=== PATIENT | female | born 1980 | race Hispanic/Latino ===

== ENCOUNTER 2016-09-06 14:54 | Emergency (ER) | payer OTHER ==
[~2016-09-06] VITALS: Ht 157.5 cm; Wt 73.5 kg
[~2016-09-06 14:54] MED LIST: ADVAIR DISKUS 21 DSK INH; ADVAIR DISKUS1 UNIT INH; ALBUTEROL0.09 MG/A1 INH; ALBUTEROL0.09 MG/Ac INH; ALBUTEROL0.63 MG/3 INH/SOL; ALPRAZOLAM0.5 M3 PO; ALPRAZOLAM1 MG PO; AMITRIPTYLINE H25 M1 PO; ASPIR 8181 MG PO; ATIVAN0.5 M1 PO; AUGMENTIN 875875 MG PO; AZITHROMYCIN250 MG PO; BROMFED DM COU473 ML PO; Benadryl PO; COMPAZINE10 M1 PO; COUMADIN 2.5 M2.5 MG PO; COUMADIN 5 MG TA5 MG PO; CYCLOBENZAPRINE5 M2 PO; DILAUDID2 M1 PO; DILAUDID2 MG PO; DIPHENHYDRAMINE25 M1 PO; DIVALPROEX SOD500 M2 PO; DOXYCYCLINE HY100 MG PO; DOXYCYCLINE MO100 MG PO; DULCOLAX5 MG PO; EFFEXOR XR150 MG PO; ELAVIL25 MG PO; ELIQUIS2.5 M1 PO; ELIQUIS5 M1 PO; ELIQUIS5 MG PO; FERROUS SULFAT325 M1 PO; FERROUS SULFAT325 M2 PO; FIORICET 325 MG1 TAB PO; FIORICET 50-301 EACH PO; FLEXERIL10 MG PO; FLU VACCINE 0.0.5 ML IM; HYDROMORPHONE HC2 MG PO; HYDROXYZINE HCL25 MG PO; IBUPROFEN800 M1 PO; IMITREX20 MG PO; IMITREX50 M1 PO; IMODIUM A-D2 M1 PO; K-DUR 20MEQ TA20 MEQ PO; KETOROLAC TROME10 M1 PO; LASIX20 MG PO; LEVOTHROID0.075 MG PO; LEVOTHROID0.125 MG PO; LEVOTHYROXIN0.025 M1 PO; LEVOTHYROXINE125 MCG PO; LIORESAL 10MG T10 MG PO; LOVENOX 10100 MG/1 M SC; LYRICA75 MG PO; MASON NATURAL2000 IU PO; MAXALT10 MG PO; MEDROL4 M2 PO; MOBIC15 MG PO; OXYCONTIN10 MG PO; PEPCID20 M1 PO; PEPCID20 MG PO; PERCOCET 325 MG1 TA2 PO; PERCOCET 325 MG1 TAB PO; PERCOCET 5-3251 EACH PO; PHENERGAN25 M2 PO; PREDNISONE 20MG20 MG PO; PREDNISONE10 MG PO; PROCHLORPERAZIN10 M1 PO; PROMETHAZINE HC25 M3 PO; ROBITUSSIN W/CO10 ML PO; SERTRALINE HYD100 MG PO; SUMATRIPTAN SU100 MG PO; TOPAMAX200 M1 PO; TOPAMAX50 M1 PO; TOPIRAMATE25 MG PO; TRAZODONE HCL150 MG PO; TYLENOL COLD M240 M1 PO; UNITHROID PO; VALIUM5 M1 PO; VENLAFAXINE HYD25 MG; VENLAFAXINE HYD75 M1 PO; VICODIN 300 MG-1 TAB PO; VITAMIN B-12250 MCG PO; WARFARIN SODIU2.5 MG PO; XANAX1 MG PO; ZITHROMAX Z-PA250 M1 PO; ZOFRAN 4 MG TABL4 MG PO; ZOFRAN 4MG ORALL4 MG PO; ZOFRAN ODT4 MG PO; ZOFRAN ODT4 MG SL; ZOFRAN4 M1 PO; ZOFRAN4 M1 SL; ZOLOFT 100 MG100 MG PO; ZOLOFT100 M1 PO
--- NOTE | 2016-09-06 18:00 | ED HEADACHE COMPLAINT ---
History of Present Illness General Chief Complaint: General Adult Stated Complaint: ?MIGRAINE Source: patient Exam Limitations: no limitations Vital Signs & Intake/Output Vital Signs & Intake/Output Vital Signs Date Time Temp Pulse Resp B/P Pulse O2 O2 Flow FiO2 Ox Delivery Rate 09/06 2011 97.6 84 18 116/80 99 Room Air Room Air 09/06 1619 97.4 87 16 117/84 99 Room Air ED Intake and Output 09/07 0000 09/06 1200 Intake Total 1100 Output Total Balance 1100 Intake, IV 1100 Patient 162 lb Weight Allergies Coded Allergies: morphine (Intermediate, ITCHING, HIVES 06/17/16) Reconcile Medications Albuterol Sulfate (Albuterol Sulfate Nebulizer Soln) 0.63 MG/3 ML VIAL.NEB 1 Vial INH/LUIZA 4 TIMES/DAY PRN ASTHMA (Reported) Albuterol Sulfate (Albuterol Sulfate Hfa) 90 MCG HFA.AER.AD 2 PUFF INH Q4-6 PRN PRN SHORTNESS OF BREATH 90 MCG PER PUFF Apixaban (Eliquis) 2.5 MG TABLET 2.5 MG PO BID BLOOD THINNER Cyanocobalamin (Vitamin B-12) (Vitamin B-12) 250 MCG TABLET 1 TAB PO DAILY B12 DEFICIENCY Famotidine 20 MG TABLET 1 TAB PO DAILY GERD (Reported) Ferrous Sulfate 325 MG TABLET.DR 1 TAB PO DAILY IRON DEF ANEMIA Ketorolac Tromethamine 10 MG TABLET 1 TAB PO TID INFLAMMATION Ketorolac Tromethamine 10 MG TABLET 1 TAB PO TID PRN MIGRAINE Levothyroxine Sodium 125 MCG TABLET 1 TAB PO DAILY THYROID (Reported) Loperamide HCl (Imodium A-D) 2 MG TABLET 0 PO SEE ADMIN CRITERIA PRN diarrhea 1 tab after each loose stool up to 7 per day Methylprednisolone. (Medrol) 4 MG TAB.DS.PK 1 DP PO AD INFLAMMATION 6 on day 1 then reduce by one tablet daily until gone Promethazine HCl 25 MG TABLET 1 TAB PO Q6P PRN NAUSEA Sertraline HCl (Zoloft) 100 MG TABLET 150 MG PO DAILY DEPRESSION Topiramate (Topamax) 50 MG TABLET 1 TAB PO BID MIGRAINE PROPHYLAXIS Please make an appointment with your Neurologist by the end of this week 03/26/16 so that your medication can be uptitrated as per their recommendations. Trazodone Hydrochloride (Trazodone HCl) 150 MG TAB 150 MG PO AT BEDTIME SLEEP (Reported) Triage Note: PT STATES SHE HAS A MIGRAINE SINCE TUESDAY NIGHT BUT STATES IT ISN'T GOING AWAY. PT STATES SHE HAS BEEN TAKING HER MEDS DIRECTED. PT STATES HER TOM GOES AWAY FOR AN HOUR BUT RETURNS. Triage Nurses Notes Reviewed? yes Onset: Gradual Duration: getting worse Timing: recent history Severity Numbers: 8 Head Injury Location: frontal : No Patient currently breastfeeds: No HPI: Patient is a 36-year-old female with past medical history of chronic migraines who presents emergency and that she had a gradual onset on Tuesday 3 days ago of a left-sided frontal migraine headache with associated symptoms of photophobia and nausea without emesis blurred vision sensitivity to loud noises which patient has been taking her Topamax and Maxalt and Advil with intermittent relief of symptoms. Today symptoms have been unrelieved with medications. Denies any acute onset or thunderclap headache symptoms and denies worse headache of life. Denies any chest pain or arm pain jaw pain abdominal pain. (FRANK CERON) Past History Travel History Traveled to [place] past 21 day No Medical History Any Pertinent Medical History? see below for history Neurological: migraine, peripheral neuropathy, seizure EENT: NONE Cardiovascular: EDEMA FROM [place] Respiratory: asthma, bronchitis, pulmonary embolism, pneumonia Gastrointestinal: NONE Hepatic: NONE Renal: NONE Musculoskeletal: fibromyalgia Psychiatric: anxiety, depression Endocrine: hypothyroidism Blood Disorders: DVT X 3 MYESHA 03/05 Cancer(s): NONE BRICK WHEELER/Reproductive: NONE History of MRSA: Yes History of VRE: No History of CDIFF: No Surgical History Surgical History: cholecystectomy, tubal ligation Psychosocial History Who do you live with Significant Other Services at Home None What is your primary language Taiwanese Tobacco Use: Never used ETOH Use: denies use Illicit Drug Use: denies illicit drug use Family History Family History, If Any: MOTHER FH: diabetes mellitus FH: hyperlipidemia FH: migraine headache FH: neuropathy FATHER FH: diabetes mellitus FH: heart attack FH: obesity Hx Contributory? No (FRANK CERON) Review of Systems Review of Systems Constitutional: Reports: see HPI. Eyes: Reports: see HPI, photophobia. Ears, Nose, Throat, Mouth: Reports: no symptoms. Respiratory: Reports: no symptoms. Cardiovascular: Reports: no symptoms. Gastrointestinal/Abdominal: Reports: no symptoms. Genitourinary: Reports: no symptoms. Musculoskeletal: Reports: no symptoms. Skin: Reports: no symptoms. Neurological/Psychological: Reports: see HPI, headache. Hematologic/Endocrine: Reports: no symptoms. Endocrine: Reports: no symptoms. Immunologic/Allergic: Reports: no symptoms. All Other Systems: Reviewed and Negative (FRANK CERON) Physical Exam Physical Exam General Appearance: mild distress Cranial Nerves: normal hearing, normal speech, PERRL Comments: HEENT: Normal EENT exam, extraocular motion intact, no nystagmus. Pupils equally round and reactive to light and accommodation. Nose is atraumatic. External auditory canal and Tympanic membranes clear. Pharynx normal. No swelling or edema. Neck: Supple, no lymphadenopathy, normal range of motion without pain or tenderness Back: Nontender, no CVA tenderness. Cardiovascular: Regular rate and rhythms no murmurs rubs or gallops, normal JVP Respiratory: Chest nontender. No respiratory distress.breath sounds clear to auscultation bilaterally Abdomen: Soft, nontender nondistended, no appreciable organomegaly. Normal bowel sounds. No ascites Extremity: No edema, no calf tenderness to palpation, normal and equal pulses. Neuro: Alert oriented x3, motor sensory normal, cranial nerves II through XII grossly intact. Skin: No appreciable rash on exposed skin, skin is warm and dry. Psych: Mood and affect is normal, memory and judgment is normal. Core Measures Severe Sepsis Present: No Septic Shock Present: No (FRANK CERON) Progress Differential Diagnosis: carotid dissection, cav sinus thromb, cluster TOM, encephalitis, IC mass/tumor, intracranial Hem., meningitis, migraine TOM, musculoskeletal pain, post LP headache, sinusitis, SSS thrombosis, subarach. Hem., tension TOM, temporal arteritis, TMJ syndrome, viral cephalgia Plan of Care: Current Medications Sig/Ranjeet Start time Last Medication Dose Stop Time Status Admin Sodium Chloride 1,000 ML BOLUS ONE 09/06 1800 AC (Normal Saline 0.9%) 09/06 1859 And currently has no concerns at this time due to history of present illness and exam findings of SAH,ich or giant cell arteritis Patient after medications administered in the emergency room had significant complete resolution of nausea and headaches. Upon discharge patient looks well no apparent distress and patient was strongly advised to follow-up with established neurologist Dr. Rivera and she will comply. (FRANK CERON) Departure Departure Disposition: HOME OR SELF CARE Condition: Stable Clinical Impression Primary Impression: Migraine Referrals: LINNETTE MOE,KEON (PCP/Family) Additional Instructions: As discussed begin the prescription of ketorolac for her headaches as directed. Begin the prescription of promethazine for nausea. Continue home medications as directed. Follow up this week with your established neurologist Dr. Rivera. Prescriptions are waiting at [facility] pharmacy. Departure Forms: Customer Survey General Discharge Information Prescriptions: Current Visit Scripts Ketorolac Tromethamine 1 TAB PO TID PRN MIGRAINE #15 TAB Promethazine HCl 1 TAB PO Q6P PRN NAUSEA #15 TAB (FRANK CERON) PA/BOILER INSPECTOR Co-Sign Statement Statement: ED Attending supervision documentation- [] I saw and evaluated the patient. I have also reviewed all the pertinent lab results and diagnostic results. I agree with the findings and the plan of care as documented in the PA's/BOILER INSPECTOR's documentation. [X] I have reviewed the ED Record and agree with the PA's/BOILER INSPECTOR's documentation. [] Additions or exceptions (if any) to the PAs/BOILER INSPECTOR's note and plan are summarized below: [] (BART MOE,KEON)
[2016-09-06] MEDS ORDERED: KETOROLAC TROME10 M1 PO (20:01)
[2016-09-06] MEDS ORDERED: PROMETHAZINE HC25 M3 PO (20:01)
[2016-09-06 20:12] VITALS: BP 116/80
== END 2016-09-06 20:13 ==
LOC: ERH 14:54
DX: G43.909 Migraine, unspecified, not intractable, without status migrainosus (principal)
CPT/HCPCS: 96374; 96375; J1200; J1885; J2550; J2920

== ENCOUNTER 2016-09-21 08:00 | Emergency (ER) | payer OTHER ==
[~2016-09-21] VITALS: Ht 157.5 cm; Wt 79.4 kg
--- NOTE | 2016-09-21 09:24 | RADIOLOGY REPORT ---
EXAMINATION: XR CHEST CLINICAL INFORMATION: Chest pain and shortness of breath. COMPARISON: Chest x-ray 05/24/2016. TECHNIQUE: PA and lateral views of the chest were obtained. FINDINGS: The lung al are well expanded and appear clear bilaterally. The cardiac silhouette is normal. There are no pleural effusions or pneumothorax. The central pulmonary vasculature is normal. The hilar regions appear normal. There are no acute osseous findings. There are surgical clips in the right upper quadrant consistent with sequelae of cholecystectomy. IMPRESSION: 1. There are no acute cardiopulmonary findings.
[2016-09-21 09:41] LABS: ABSOLUTE BASOPHIL COUNT 0 /CUMM (0.0-0.2); ABSOLUTE EOSINOPHIL COUNT 0.2 /CUMM (0.0-0.7); ABSOLUTE GRANULOCYTE CT 3.9 /CUMM (1.4-6.5); ABSOLUTE LYMPH COUNT 1.6 /CUMM (1.2-3.4); ABSOLUTE MONOCYTE COUNT 0.2 /CUMM (0.10-0.60); BASOPHIL % 0.4 % (0.0-2.0); EOSINOPHIL % 2.8 % (0-5); GRANULOCYTE % 66.1 % (42.2-75.2); HEMATOCRIT 36.8 % (37-47); MEAN CORPUSCULAR HGB 30.1 PG (27.0-31.0); MEAN CORPUSCULAR HGB CONC 33.8 G/DL (33.0-37.0); MEAN CORPUSCULAR VOLUME 88.9 FL (81.0-99.0); PLATELET COUNT 397 /CUMM (130-400); RBC DISTRIBUTION WIDTH 13.5 % (11.5-14.5); RED BLOOD CELL CT 4.14 /CUMM (4.20-5.40); WHITE BLOOD CELL COUNT 5.9 /CUMM (4.8-10.8)
[2016-09-21] MEDS ORDERED: PREDNISONE20 M1 PO (12:00)
[2016-09-21] MEDS ORDERED: IBUPROFEN800 M1 PO (12:00)
[2016-09-21] MEDS ORDERED: BACLOFEN10 M1 PO (12:00)
--- NOTE | 2016-09-21 12:00 | ED GENERAL ADULT ---
History of Present Illness General Chief Complaint: Chest Pain Stated Complaint: chest pain; headache; vomiting Source: patient, old records Exam Limitations: no limitations Vital Signs & Intake/Output Vital Signs & Intake/Output Vital Signs Date Time Temp Pulse Resp B/P Pulse O2 O2 Flow FiO2 Ox Delivery Rate 09/21 1202 96.6 64 16 111/74 96 Room Air 09/21 1021 97.5 74 18 109/66 98 Room Air 09/21 0809 98.3 74 20 123/83 99 Room Air Room Air Allergies Coded Allergies: morphine (Intermediate, ITCHING, HIVES 06/17/16) Reconcile Medications Albuterol Sulfate (Albuterol Sulfate Nebulizer Soln) 0.63 MG/3 ML VIAL.NEB 1 Vial INH/LUIZA 4 TIMES/DAY PRN ASTHMA (Reported) Albuterol Sulfate (Albuterol Sulfate Hfa) 90 MCG HFA.AER.AD 2 PUFF INH Q4-6 PRN PRN SHORTNESS OF BREATH 90 MCG PER PUFF Apixaban (Eliquis) 2.5 MG TABLET 2.5 MG PO BID BLOOD THINNER Baclofen 10 MG TABLET 1 TAB PO TIDPRN PRN muscle spasm/strain Cyanocobalamin (Vitamin B-12) (Vitamin B-12) 250 MCG TABLET 1 TAB PO DAILY B12 DEFICIENCY Famotidine 20 MG TABLET 1 TAB PO DAILY GERD (Reported) Ferrous Sulfate 325 MG TABLET.DR 1 TAB PO DAILY IRON DEF ANEMIA Furosemide (Lasix) 20 MG TABLET 1 TAB PO DAILY volume overload Ibuprofen 800 MG TABLET 1 TAB PO Q6PRN PRN pain Ketorolac Tromethamine 10 MG TABLET 1 TAB PO TID INFLAMMATION Ketorolac Tromethamine 10 MG TABLET 1 TAB PO TID PRN MIGRAINE Levothyroxine Sodium 125 MCG TABLET 1 TAB PO DAILY THYROID (Reported) Loperamide HCl (Imodium A-D) 2 MG TABLET 0 PO SEE ADMIN CRITERIA PRN diarrhea 1 tab after each loose stool up to 7 per day Methylprednisolone. (Medrol) 4 MG TAB.DS.PK 1 DP PO AD INFLAMMATION 6 on day 1 then reduce by one tablet daily until gone Prednisone 20 MG TABLET 1 TAB PO BID asthma Promethazine HCl 25 MG TABLET 1 TAB PO Q6P PRN NAUSEA Sertraline HCl (Zoloft) 100 MG TABLET 150 MG PO DAILY DEPRESSION Topiramate (Topamax) 50 MG TABLET 1 TAB PO BID MIGRAINE PROPHYLAXIS Please make an appointment with your Neurologist by the end of this week 03/26/16 so that your medication can be uptitrated as per their recommendations. Trazodone Hydrochloride (Trazodone HCl) 150 MG TAB 150 MG PO AT BEDTIME SLEEP (Reported) Triage Note: PT TO ED WITH C/O NAUSEA, VOMITING, DIARRHEA, AND C/O SOB, "TOOK INHALER LAST NIGHT" "I GET NERVOUS BECAUSE I HAVE HISTORY TO PE IN 2011, AND MYESHA DVT X 2 2014. Triage Nurses Notes Reviewed? yes Onset: several days Duration: day(s):, constant, continues in ED Timing: recent history Injury Environment: home Severity: moderate No Modifying Factors: none Associated Symptoms: cough, chest pain LMP (ages 10-50): unknown : No Patient currently breastfeeds: No HPI: Several days prior to admission patient complains of nonproductive cough shortness of breath with increased albuterol use. 6 hours prior to admission she complains of left-sided chest pain radiating to her arm described as achy constant mild to moderate in severity associated with headache nausea vomiting times one. She denies fever chills diarrhea abdominal pain dysuria rash bleeding. Past History Travel History Traveled to [place] past 21 day No Medical History Any Pertinent Medical History? see below for history Neurological: migraine, peripheral neuropathy, seizure EENT: NONE Cardiovascular: EDEMA FROM [place]YRICA Respiratory: asthma, bronchitis, pulmonary embolism, pneumonia Gastrointestinal: NONE Hepatic: NONE Renal: NONE Musculoskeletal: fibromyalgia Psychiatric: anxiety, depression Endocrine: hypothyroidism Blood Disorders: DVT X 3 MYESHA 03/05 Cancer(s): NONE PRACTICE DIRECTOR/Reproductive: NONE History of MRSA: Yes History of VRE: No History of CDIFF: No Surgical History Surgical History: cholecystectomy, tubal ligation Psychosocial History Who do you live with Significant Other Services at Home None What is your primary language Cymro Tobacco Use: Never used ETOH Use: denies use Illicit Drug Use: denies illicit drug use Family History Family History, If Any: MOTHER FH: diabetes mellitus FH: hyperlipidemia FH: migraine headache FH: neuropathy FATHER FH: diabetes mellitus FH: heart attack FH: obesity Hx Contributory? No Review of Systems Review of Systems Constitutional: Reports: see HPI, malaise. EENTM: Reports: see HPI, nasal congestion. Respiratory: Reports: see HPI, cough, short of breath. Cardiovascular: Reports: see HPI, chest pain. GI: Reports: see HPI, nausea, vomiting. Genitourinary: Reports: no symptoms. Musculoskeletal: Reports: no symptoms. Skin: Reports: no symptoms. Neurological/Psychological: Reports: see HPI, anxiety. Hematologic/Endocrine: Reports: no symptoms. Immunologic/Allergic: Reports: no symptoms. All Other Systems: Reviewed and Negative Physical Exam Physical Exam General Appearance: well developed/nourished, alert, awake, anxious, mild distress, obese Head: atraumatic, normal appearance Eyes: Bilateral: normal appearance, PERRL, EOMI. Ears, Nose, Throat: normal pharynx, normal ENT inspection, hearing grossly normal Neck: normal inspection, supple, full range of motion, no midline tenderness Respiratory: normal breath sounds, chest non-tender, no respiratory distress, quiet respiration, lungs clear Cardiovascular: regular rate/rhythm, normal peripheral pulses, norml femoral pulses equa Peripheral Pulses: 4+ carotid (R), 4+ carotid (L) Gastrointestinal: normal bowel sounds, soft, non-tender, no organomegaly Back: normal inspection, normal range of motion Extremities: normal inspection, normal capillary refill, normal range of motion, no edema Neurologic/Psych: no motor/sensory deficits, awake, alert, oriented x 3, normal gait, normal mood/affect, 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 Skin: intact, normal color, warm/dry Lymphatic: no anterior cervical magnolia Core Measures ACS in differential dx? Yes CVA/TIA Diagnosis: No Severe Sepsis Present: No Septic Shock Present: No Progress Differential Diagnoses I considered the following diagnoses in my evaluation of the patient: Pneumonia chest pain syndrome viral syndrome migraine headache Plan of Care: Orders Procedure Date/time Status TROPONIN LEVEL 09/21 823 Complete MAGNESIUM 09/21 823 Complete LIPASE 09/21 823 Complete D-DIMER 09/21 823 Complete COMPREHENSIVE METABOLIC PANEL 09/21 823 Complete CBC WITHOUT DIFFERENTIAL 09/21 823 Complete B-TYPE NATRIURETIC PEP (BNP) 09/21 823 Complete EKG 09/21 801 Active Current Medications Sig/Ranjeet Start time Last Medication Dose Stop Time Status Admin Ketorolac 30 MG ONCE ONE 09/21 829 CAN Tromethamine 09/21 830 (Toradol) Metoclopramide HCl 10 MG ONCE ONE 01/31 0830 CAN (Reglan) 01/31 0831 Laboratory Tests 09/21/16 0925: Anion Gap 8, Estimated GFR > 60, BUN/Creatinine Ratio 22.5, Glucose 91, Calcium 8.8, Magnesium 2.1, Total Bilirubin 0.4, AST 18, ALT 26, Alkaline Phosphatase 61 , Troponin I < 0.01, [id number] Pept 126 H, Total Protein 6.9, Albumin 3.9, Globulin 3.0, Albumin/Globulin Ratio 1.3, Lipase 60, D-Dimer 240 H, CBC w Diff NO MAN DIFF REQ, RBC 4.14 L, MCV 88.9, MCH 30.1, RDW 13.5, MPV 7.0 L, Gran % 66.1, Lymphocytes % 26.5, Monocytes % 4.2, Eosinophils % 2.8, Basophils % 0.4, Absolute Granulocytes 3.9, Absolute Lymphocytes 1.6, Absolute Monocytes 0.2 , Absolute Eosinophils 0.2, Absolute Basophils 0, PUBS MCHC 33.8 Initial ED EKG: normal axis, normal intervals, normal p-waves, normal QRS complex, normal sinus rhythm, nonspecific ST T wave chg Prior EKG: unchanged Rhythm Strip: normal sinus rhythm Departure Departure Time of Disposition: 1158 Disposition: HOME OR SELF CARE Condition: Stable Clinical Impression Primary Impression: Chest pain syndrome Secondary Impressions: Asthma exacerbation Headache Qualifiers: Headache type: unspecified Headache chronicity pattern: unspecified pattern Intractability: not intractable Qualified Code: R51 - Headache Referrals: LINNETTE MOE,KEON (PCP/Family) Departure Forms: Customer Survey General Discharge Information Prescriptions: Current Visit Scripts Baclofen 1 TAB PO TIDPRN PRN muscle spasm/strain #30 TAB Prednisone 1 TAB PO BID #10 TAB Ibuprofen 1 TAB PO Q6PRN PRN pain #50 TAB Furosemide (Lasix) 1 TAB PO DAILY #30 TAB Critical Care Note Critical Care Note Critical Care Time: non-applicable
[2016-09-21 12:02] VITALS: BP 111/74
[2016-09-21] MEDS ORDERED: LASIX20 M1 PO (12:07)
== END 2016-09-21 12:08 ==
LOC: ERH 08:00
PROVIDERS: Emergency Medicine
DX: R07.1 Chest pain on breathing (principal); J45.901 Unspecified asthma with (acute) exacerbation; R51 Headache; R11.10 Vomiting, unspecified
CPT/HCPCS: 93005; 93010; 96372

== ENCOUNTER 2016-10-14 15:09 | Emergency (ER) | payer OTHER ==
[~2016-10-14] VITALS: Ht 157.5 cm; Wt 77.1 kg
[~2016-10-14 15:09] MED LIST changes: +BACLOFEN10 M1 PO; +LASIX20 M1 PO; +PREDNISONE20 M1 PO
--- NOTE | 2016-10-14 17:14 | ED HEADACHE COMPLAINT ---
History of Present Illness General Chief Complaint: Headache Stated Complaint: MIGRANE Source: patient Exam Limitations: no limitations Vital Signs & Intake/Output Vital Signs & Intake/Output Vital Signs Date Time Temp Pulse Resp B/P Pulse O2 O2 Flow FiO2 Ox Delivery Rate 10/14 1832 97.5 67 20 132/67 99 Room Air 10/14 1521 98.2 90 18 120/82 98 Room Air Allergies Coded Allergies: morphine (Intermediate, ITCHING, HIVES 06/17/16) Triage Note: PT TO [facility] WITH C/O [id number], N/V TODAY, PHOTOSENSITIVITY. PT HAS BEEN TAKING MOTRIN WITH NO PAIN RELIEF. VSS. Triage Nurses Notes Reviewed? yes Onset: Gradual Duration: day(s): (3) Timing: recent history Quality/Severity: moderate, throbbing Severity Numbers: 8 Head Injury Location: frontal, temporal No Modifying Factors: none : No Patient currently breastfeeds: No HPI: Patient is a 36-year-old female with history of migraine headaches presenting to the emergency Department chief complaint of migraine headache that thing going on for the past 2-3 days. Headache has been constant. Headache currently 7 or 8 out of 10. Throbbing in nature. Patient also reporting associated nausea, vomiting 3 today with photosensitivity. Denies any neck pain or fevers. No abdominal pain or diarrhea. Denies any blood in the vomit. She has been taking ibuprofen and Maxalt without relief. Her last checkup with the neurologist was in July. Denies any double vision. This is not the worst headache she's ever had. (MARIO CAMPOS,AFSHAN) Reconcile Medications Albuterol Sulfate 2.5 MG/3 ML (0.083 %) VIAL.NEB 1 Vial INH/LUIZA 4 TIMES/DAY PRN ASTHMA (Reported) Albuterol Sulfate (Proair Hfa) 90 MCG HFA.AER.AD 2 PUF INH Q4-6 PRN PRN SOB ( Reported) Apixaban (Eliquis) 2.5 MG TABLET 2.5 MG PO BID BLOOD THINNER Butalb/Acetaminophen/Caffeine (Fioricet 50-300-40 MG Capsule) 50 MG-300 MG-40 MG CAPSULE 1 TAB PO TID PRN HEADACHES Cyanocobalamin (Vitamin B-12) (Vitamin B-12) 250 MCG TABLET 1 TAB PO DAILY B12 DEFICIENCY Famotidine (Pepcid) 20 MG TABLET 1 TAB PO DAILY GERD (Reported) Ferrous Sulfate 325 MG TABLET.DR 1 TAB PO DAILY IRON DEF ANEMIA Furosemide (Lasix) 20 MG TABLET 1 TAB PO DAILY volume overload Ibuprofen 800 MG TABLET 1 TAB PO Q6PRN PRN pain Levothyroxine Sodium 125 MCG TABLET 1 TAB PO DAILY THYROID (Reported) Sertraline HCl (Zoloft) 100 MG TABLET 1 TAB PO DAILY DEPRESSION (Reported) Topiramate (Topamax) 50 MG TABLET 1 TAB PO BID MIGRAINE PROPHYLAXIS Please make an appointment with your Neurologist by the end of this week 03/26/16 so that your medication can be uptitrated as per their recommendations. Trazodone HCl 150 MG TABLET 1 TAB PO QHS SLEEP (Reported) (HARINDER MOE,AMALIA) Past History Travel History Traveled to [place] past 21 day No Medical History Any Pertinent Medical History? see below for history Neurological: migraine, peripheral neuropathy, seizure EENT: NONE Cardiovascular: EDEMA FROM LYRICA Respiratory: asthma, bronchitis, pulmonary embolism, pneumonia Gastrointestinal: NONE Hepatic: NONE Renal: NONE Musculoskeletal: fibromyalgia Psychiatric: anxiety, depression Endocrine: hypothyroidism Blood Disorders: DVT X 3 MYESHA 03/05 Cancer(s): NONE FIELD REPRESENTATIVE/HEALTH EDUCATION/Reproductive: NONE History of MRSA: Yes History of VRE: No History of CDIFF: No Surgical History Surgical History: cholecystectomy, tubal ligation Psychosocial History Who do you live with Significant Other Services at Home None What is your primary language Jordanian Tobacco Use: Never used Family History Family History, If Any: MOTHER FH: diabetes mellitus FH: hyperlipidemia FH: migraine headache FH: neuropathy FATHER FH: diabetes mellitus FH: heart attack FH: obesity Hx Contributory? No (AFSHAN WINN) Review of Systems Review of Systems Constitutional: Reports: no symptoms. Comments Review of systems: See HPI, All other systems negative. Constitutional, no chills fever or weight loss HEENT: No visual changes no sore throat no congestion Cardiovascular: No chest pain ,palpitation , orthopnea or ankle swelling Skin, no jaundice no rashes Respiratory: No dyspnea cough sputum or hemoptysis GI: No diarrhea : No dysuria No hematuria Muscle skeletal: no back pain, no neck pain, Neurologic: No numbness no confusion Psych: No stress anxiety or depression,. Heme/endocrine: No bruising no bleeding no polyuria or polydipsia Immunology: No splenectomy or history of AIDS (AFSHAN WINN) Physical Exam Physical Exam General Appearance: well developed/nourished, no apparent distress, alert, awake , comfortable Cranial Nerves: normal hearing, normal speech, PERRL, cranial nerves II through XII grossly intact. Comments: Well-developed well-nourished person in no acute distress HEENT: Normal EENT exam, extraocular motion intact, no nystagmus. Pupils equally round and reactive to light and accommodation. Nose is atraumatic. External auditory canal and Tympanic membranes clear. Pharynx normal. No swelling or edema. No pain to palpation over the scalp. No sinus tenderness to palpation. Neck: Supple, no lymphadenopathy, normal range of motion without pain or tenderness and no meningeal signs. Back: Nontender Cardiovascular: Regular rate and rhythms no murmurs rubs or gallops, normal JVP Respiratory: Chest nontender. No respiratory distress.breath sounds clear to auscultation bilaterally Extremity: No edema Neuro: Alert oriented x3, motor sensory normal, cranial nerves II through XII grossly intact. Cerebellar testing unremarkable. Skin: No appreciable rash on exposed skin, skin is warm and dry. Psych: Mood and affect is normal, memory and judgment is normal. Core Measures Severe Sepsis Present: No Septic Shock Present: No (AFSHAN WINN) Progress Differential Diagnosis: cluster TOM, intracranial Hem., meningitis, migraine TOM, musculoskeletal pain, subarach. Hem., tension TOM, temporal arteritis, TMJ syndrome Plan of Care: Current Medications Sig/Ranjeet Start time Last Medication Dose Stop Time Status Admin Diphenhydramine HCl 50 MG ONCE ONE 10/14 1714 UNVr (Benadryl) 10/14 1715 Ketorolac 30 MG ONCE ONE 10/14 1714 UNVr Tromethamine 10/14 1715 (Toradol) Ondansetron HCl 4 MG ONCE ONE 10/14 1714 UNVr (Zofran) 10/14 1715 Sodium Chloride 1,000 ML BOLUS ONE 10/14 1714 UNVr (Normal Saline 0.9%) 10/14 181 Comments: 10/14/2016 5:23:45 PM patient is afebrile chest neurologically intact. This headache was gradual in onset and currently moderate. Not worse headache she's ever had. She does have a history of migraines and this feels identical. Unable to control it with her at-home medications. Patient will be treated symptomatically with IV hydration, Toradol, Zofran, Benadryl. We will reassess medications are given. 10/14/2016 7:14:28 PM on reevaluation patient feeling much better after medications and fluids. Patient no longer nauseous. Headache is now minimal. Patient will be discharged with prescription for Fioricet and will follow up with neurology. Patient nontoxic. No signs of meningitis. Likely exacerbation of chronic migraines. (AFSHAN WINN) Departure Departure Time of Disposition: 1911 Disposition: HOME OR SELF CARE Condition: Stable Clinical Impression Primary Impression: Migraine Qualifiers: Migraine type: unspecified Status migrainosus presence: without status migrainosus Intractability: not intractable Qualified Code: G43.909 - Migraine, unspecified, not intractable, without status migrainosus Referrals: LINNETTE MOE,KEON (PCP/Family) Additional Instructions: Follow-up with your primary care physician call to make an appointment. Continue taking all medications as prescribed with migraines. Increase fluids. Return for worsening symptoms or concerns. Departure Forms: Customer Survey General Discharge Information Prescriptions: Current Visit Scripts Butalb/Acetaminophen/Caffeine (Fioricet 50-300-40 MG Capsule) 1 TAB PO TID PRN HEADACHES #15 TAB (AFSHAN WINN) PA/ELECTROPLATING TECHNICIAN Co-Sign Statement Statement: ED Attending supervision documentation- x I saw and evaluated the patient. I have also reviewed all the pertinent lab results and diagnostic results. I agree with the findings and the plan of care as documented in the PA's/ELECTROPLATING TECHNICIAN's documentation. [] I have reviewed the ED Record and agree with the PA's/ELECTROPLATING TECHNICIAN's documentation. [] Additions or exceptions (if any) to the PAs/ELECTROPLATING TECHNICIAN's note and plan are summarized below: [] (HARINDER MOE,AMALIA)
[2016-10-14] MEDS ORDERED: ALBUTEROL2.5 MG/3 M INH/SOL (17:29)
[2016-10-14] MEDS ORDERED: PROAIR HFA8.5 GM INH (17:30)
[2016-10-14] MEDS ORDERED: ZOLOFT100 M1 PO (17:31)
[2016-10-14] MEDS ORDERED: TRAZODONE HCL150 M1 PO (17:32)
[2016-10-14 18:32] VITALS: BP 132/67
[2016-10-14] MEDS ORDERED: FIORICET 50-301 EACH PO (19:14)
== END 2016-10-14 19:26 ==
LOC: ERH 15:09
DX: G43.909 Migraine, unspecified, not intractable, without status migrainosus (principal)
CPT/HCPCS: 96374; 96375; J1200; J1885; J2405

== ENCOUNTER 2016-11-28 02:24 | Emergency (ER) | payer OTHER ==
[~2016-11-28] VITALS: Ht 167.6 cm; Wt 74.8 kg
[~2016-11-28 02:24] MED LIST changes: +ALBUTEROL2.5 MG/3 M INH/SOL; +PROAIR HFA8.5 GM INH; +TRAZODONE HCL150 M1 PO
--- NOTE | 2016-11-28 02:46 | ED HEADACHE COMPLAINT ---
History of Present Illness General Chief Complaint: Headache Stated Complaint: TOM Source: patient, family, old records Exam Limitations: no limitations Vital Signs & Intake/Output Vital Signs & Intake/Output Vital Signs Date Time Temp Pulse Resp B/P Pulse O2 O2 Flow FiO2 Ox Delivery Rate 11/28 0234 99.9 85 18 115/81 97 Room Air Allergies Coded Allergies: morphine (Intermediate, ITCHING, HIVES 06/17/16) Reconcile Medications Albuterol Sulfate 2.5 MG/3 ML (0.083 %) VIAL.NEB 1 Vial INH/LUIZA 4 TIMES/DAY PRN ASTHMA (Reported) Albuterol Sulfate (Proair Hfa) 90 MCG HFA.AER.AD 2 PUF INH Q4-6 PRN PRN SOB ( Reported) Apixaban (Eliquis) 2.5 MG TABLET 2.5 MG PO BID BLOOD THINNER Butalb/Acetaminophen/Caffeine (Fioricet 50-300-40 MG Capsule) 50 MG-300 MG-40 MG CAPSULE 1 TAB PO TID PRN HEADACHES Cyanocobalamin (Vitamin B-12) (Vitamin B-12) 250 MCG TABLET 1 TAB PO DAILY B12 DEFICIENCY Famotidine (Pepcid) 20 MG TABLET 1 TAB PO DAILY GERD (Reported) Ferrous Sulfate 325 MG TABLET.DR 1 TAB PO DAILY IRON DEF ANEMIA Furosemide (Lasix) 20 MG TABLET 1 TAB PO DAILY volume overload Ibuprofen 800 MG TABLET 1 TAB PO Q6PRN PRN pain Levothyroxine Sodium 125 MCG TABLET 1 TAB PO DAILY THYROID (Reported) Sertraline HCl (Zoloft) 100 MG TABLET 1 TAB PO DAILY DEPRESSION (Reported) Topiramate (Topamax) 50 MG TABLET 1 TAB PO BID MIGRAINE PROPHYLAXIS Please make an appointment with your Neurologist by the end of this week 03/26/16 so that your medication can be uptitrated as per their recommendations. Trazodone HCl 150 MG TABLET 1 TAB PO QHS SLEEP (Reported) Triage Note: PT TO TRIAGE C/O MIGRAINE THAT WOKE HER UP OUT OF HER SLEEP TO THE FRONT OF HEAD AND L SIDE OF NECK. Triage Nurses Notes Reviewed? yes Onset: Just prior to arrival Duration: minute(s):, constant, continues in ED Timing: recent history Quality/Severity: severe, throbbing Head Injury Location: global Modifying Factors: Improves With: medication. LMP (ages 10-50): hysterectomy : No Patient currently breastfeeds: No HPI: 1 day prior to admission patient reports having migraine headache and took Maxalt and Motrin with relief of symptoms. Prior to admission she awoke with recurrent migraine headache. She denies fever chills nausea vomiting diarrhea abdominal pain chest pain shortness of breath dysuria rash bleeding. Past History Travel History Traveled to [place] past 21 day No Medical History Any Pertinent Medical History? see below for history Neurological: migraine, peripheral neuropathy, seizure EENT: NONE Cardiovascular: EDEMA FROM LYRICA Respiratory: asthma, bronchitis, pulmonary embolism, pneumonia Gastrointestinal: NONE Hepatic: NONE Renal: NONE Musculoskeletal: fibromyalgia Psychiatric: anxiety, depression Endocrine: hypothyroidism Blood Disorders: DVT X 3 MYESHA 03/05 Cancer(s): NONE SHERIFF'S OFFICER/Reproductive: NONE History of MRSA: Yes History of VRE: No History of CDIFF: No Surgical History Surgical History: cholecystectomy, tubal ligation Psychosocial History Who do you live with Significant Other Services at Home None What is your primary language Mongolian Tobacco Use: Refused to answer ETOH Use: 6 Family History Family History, If Any: MOTHER FH: diabetes mellitus FH: hyperlipidemia FH: migraine headache FH: neuropathy FATHER FH: diabetes mellitus FH: heart attack FH: obesity Hx Contributory? No Review of Systems Review of Systems Constitutional: Reports: no symptoms. Eyes: Reports: no symptoms. Ears, Nose, Throat, Mouth: Reports: no symptoms. Respiratory: Reports: no symptoms. Cardiovascular: Reports: no symptoms. Gastrointestinal/Abdominal: Reports: no symptoms. Genitourinary: Reports: no symptoms. Musculoskeletal: Reports: no symptoms. Skin: Reports: no symptoms. Neurological/Psychological: Reports: see HPI, headache. Hematologic/Endocrine: Reports: no symptoms. Endocrine: Reports: no symptoms. Immunologic/Allergic: Reports: no symptoms. All Other Systems: Reviewed and Negative Physical Exam Physical Exam General Appearance: well developed/nourished, alert, awake, anxious, moderate distress, obese Head: atraumatic, normal appearance Eyes: Bilateral: normal appearance, PERRL, EOMI. Ears, Nose, Throat: normal pharynx, normal ENT inspection Neck: normal inspection, supple, full range of motion, no midline tenderness Respiratory: normal breath sounds, chest non-tender, no respiratory distress, quiet respiration, lungs clear Cardiovascular: regular rate/rhythm, normal peripheral pulses, norml femoral pulses equa Gastrointestinal: normal bowel sounds, soft, non-tender, no organomegaly Back: normal inspection, normal range of motion, vertebral tenderness, no vertebral tenderness Extremities: normal inspection, normal capillary refill, normal range of motion, no edema Psychiatric: awake, alert, oriented x 3 Cranial Nerves: normal hearing, normal speech, PERRL Coordination/Gait: normal finger to nose, normal gait Motor/Sensory: no motor/sensory deficits Reflexes: 2+: bicep (R), bicep (L). Skin: intact, normal color, warm/dry Lymphatic: no anterior cervical magnolia Core Measures Severe Sepsis Present: No Septic Shock Present: No Progress Differential Diagnosis: migraine TOM, tension TOM Plan of Care: Benadryl Toradol Departure Departure Time of Disposition: 613 Disposition: HOME OR SELF CARE Condition: Stable Clinical Impression Primary Impression: Migraine Qualifiers: Migraine type: unspecified Status migrainosus presence: without status migrainosus Intractability: not intractable Qualified Code: G43.909 - Migraine, unspecified, not intractable, without status migrainosus Referrals: LINNETTE MOE,KEON (PCP/Family) Departure Forms: Customer Survey General Discharge Information
[2016-11-28 06:18] VITALS: BP 112/79
== END 2016-11-28 06:18 ==
LOC: ERH 02:24
DX: G43.909 Migraine, unspecified, not intractable, without status migrainosus (principal)
CPT/HCPCS: 96361; 96374; 96375; J1200; J1885

== ENCOUNTER 2016-12-29 18:08 | Emergency (ER) | payer OTHER ==
[~2016-12-29] VITALS: Ht 157.5 cm; Wt 81.2 kg
[2016-12-29 18:40] LABS: ABSOLUTE BASOPHIL COUNT 0 /CUMM (0.0-0.2); ABSOLUTE EOSINOPHIL COUNT 0.1 /CUMM (0.0-0.7); ABSOLUTE GRANULOCYTE CT 5.2 /CUMM (1.4-6.5); ABSOLUTE MONOCYTE COUNT 0.4 /CUMM (0.10-0.60); BASOPHIL % 0.6 % (0.0-2.0); EOSINOPHIL % 1.8 % (0-5); GRANULOCYTE % 66.9 % (42.2-75.2); HEMATOCRIT 35.3 % (37-47); MEAN CORPUSCULAR HGB 29.9 PG (27.0-31.0); MEAN CORPUSCULAR HGB CONC 33.8 G/DL (33.0-37.0); MEAN CORPUSCULAR VOLUME 88.6 FL (81.0-99.0); MEAN PLATELET VOLUME 7.2 FL (7.4-10.4); PLATELET COUNT 378 /CUMM (130-400); RBC DISTRIBUTION WIDTH 13.6 % (11.5-14.5); RED BLOOD CELL CT 3.99 /CUMM (4.20-5.40); WHITE BLOOD CELL COUNT 7.8 /CUMM (4.8-10.8)
--- NOTE | 2016-12-29 18:50 | ED HEADACHE COMPLAINT ---
History of Present Illness General Chief Complaint: General Adult Stated Complaint: MIGRAINE, LEFT ARM NUMBNESS, HEART PALPITATI Source: patient Exam Limitations: no limitations Allergies Coded Allergies: morphine (Intermediate, ITCHING, HIVES 12/29/16) Reconcile Medications Albuterol Sulfate 2.5 MG/3 ML (0.083 %) VIAL.NEB 1 Vial INH/LUIZA 4 TIMES/DAY PRN ASTHMA (Reported) Albuterol Sulfate (Proair Hfa) 90 MCG HFA.AER.AD 2 PUF INH Q4-6 PRN PRN SOB ( Reported) Apixaban (Eliquis) 2.5 MG TABLET 2.5 MG PO BID BLOOD THINNER Butalb/Acetaminophen/Caffeine (Fioricet 50-300-40 MG Capsule) 50 MG-300 MG-40 MG CAPSULE 1 TAB PO TID PRN HEADACHES Cyanocobalamin (Vitamin B-12) (Vitamin B-12) 250 MCG TABLET 1 TAB PO DAILY B12 DEFICIENCY Famotidine (Pepcid) 20 MG TABLET 1 TAB PO DAILY GERD (Reported) Ferrous Sulfate 325 MG TABLET.DR 1 TAB PO DAILY IRON DEF ANEMIA Furosemide (Lasix) 20 MG TABLET 1 TAB PO DAILY volume overload Ibuprofen 800 MG TABLET 1 TAB PO Q6PRN PRN pain Levothyroxine Sodium 125 MCG TABLET 1 TAB PO DAILY THYROID (Reported) Sertraline HCl (Zoloft) 100 MG TABLET 1 TAB PO DAILY DEPRESSION (Reported) Topiramate (Topamax) 50 MG TABLET 1 TAB PO BID MIGRAINE PROPHYLAXIS Please make an appointment with your Neurologist by the end of this week 03/26/16 so that your medication can be uptitrated as per their recommendations. Trazodone HCl 150 MG TABLET 1 TAB PO QHS SLEEP (Reported) Triage Note: PT BROUGHT DIORECTLOY TO 4 FOR FRONTAL TOM AND NECK PAIN FOR 3 DAYS. PT HAS A HX OF MIGRAINES AND HAS SAKINA TAKING MAXOL AND IBUPROHPEN WITH LITTLE RELEIF. PT STATES SHE ALSO HAS BEEN DIZZY AND LIGHT HEADED. PT STATES TODAY HER LEFT ARM HAS BEEN TINGLING AND SHE HAS HAD A FEELING OF HEART RACING AND PAIN /10. NO NUCHAL RIGIDITY, BM'S HAVE SAKINA NORMAL Triage Nurses Notes Reviewed? yes : No Patient currently breastfeeds: No HPI: This patient is a 36 year old female with a past medical history including seizures, DVT, and neuropathy who presented to the emergency department for evaluation of migraines x3 days. The patient reported that her migraines started 3 days ago, but was controlled with Maxol and Ibuprofen until today when the pain got up to a 10 out of 10, was unrelieved by medication, has been constant, and radiates from her forehead to her occiput/neck. She reported vomiting x2 with associated nausea and abdominal pain. She reported photosensitivity, intermittent left arm tingling, intermittent chest discomfort. She denied any diarrhea, constipation, rashes, or difficulty breathing. (TEVIN BRADEN PA-C) Vital Signs & Intake/Output Vital Signs & Intake/Output Vital Signs Date Time Temp Pulse Resp B/P B/P Pulse O2 O2 Flow FiO2 Mean Ox Delivery Rate 12/29 2030 97.8 76 18 118/71 98 Room Air ED Intake and Output 12/30 0000 12/29 1200 Intake Total 0 Output Total Balance 0 Intake, Oral 0 Patient 179 lb Weight Weight Reported by Patient Measurement Method Past History Travel History Traveled to [place] past 21 day No Medical History Any Pertinent Medical History? 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 Yes (TEVIN BRADEN PA-C) Review of Systems Review of Systems Constitutional: Reports: no symptoms. Eyes: Reports: see HPI. Ears, Nose, Throat, Mouth: Reports: no symptoms. Respiratory: Reports: no symptoms. Cardiovascular: Reports: see HPI. Gastrointestinal/Abdominal: Reports: see HPI. Genitourinary: Reports: no symptoms. Musculoskeletal: Reports: no symptoms. Skin: Reports: no symptoms. Neurological/Psychological: Reports: see HPI. All Other Systems: Reviewed and Negative (ASIYA MORGAN,TEVIN) Physical Exam Physical Exam Cranial Nerves: normal hearing, normal speech, PERRL Comments: General: Well-developed, well-noursied person in mild distress HEENT: Head normocephalic/atraumatic, moist mucous membranes, PERRLA bilaterally Neck: Supple, no lymphadenopathy, no meningeal signs, no midline tenderness Back: Normal inspection Cardiovascular: Regular rate and rhythm with no murmurs, rubs or gallops Respiratory: No respiratory distress, speaking in full sentences. Lungs clear to auscultation with no wheezes, rales or rhonchi Abdominal: Soft and nondistended. Normoactive bowel sounds. Nontender to palpation. No rebound or guarding. No organomegaly. Neuro: A&Ox3. Cranial nerves grossly intact Psych: Mood and affect normal Core Measures Severe Sepsis Present: No Septic Shock Present: No (ASIYA MORGAN,TEVIN) Progress Differential Diagnosis: carotid dissection, cav sinus thromb, cluster TOM, encephalitis, IC mass/tumor, intracranial Hem., meningitis, migraine TOM, musculoskeletal pain, sinusitis, subarach. Hem., tension TOM, temporal arteritis, TMJ syndrome, viral cephalgia, acs, pe, gastroenteritis, influenza Diagnostic Imaging: Viewed by Me: CT Scan. Discussed w/RAD: CT Scan. Radiology Impression: PATIENT: GILDA HAMPTON PRESENT AGE: 36 PATIENT ACCOUNT NO: [id number] : 78 LOCATION: [facility] ORDERING PHYSICIAN: TEVIN BRADEN PA-C SERVICE DATE: 12/29/16 EXAM TYPE: CAT - CT HEAD WO IV CONTRAST EXAMINATION: CT HEAD WITHOUT CONTRAST CLINICAL INFORMATION: Rule out intracranial hemorrhage or mass. Migraine headaches. COMPARISON: Head CT from 06/15/2016. TECHNIQUE: Contiguous axial imaging was performed from the skull base to vertex without intravenous administration of contrast. DLP: 614.81 mGy-cm FINDINGS: There is no evidence of acute intracranial hemorrhage or territorial infarction. No abnormal mass effect or midline shift is seen. Walker to white matter differentiation is well preserved. No extra-axial fluid collections are identified. The ventricles are normal in size. There is no abnormal attenuation within the brain parenchyma. The osseous structures and soft tissues are normal. The mastoid air cells and visualized portions of the paranasal sinuses are well aerated. IMPRESSION: No acute intracranial pathology. DICTATED BY: MARY NORRIS MD DATE/TIME DICTATED:12/29/162008 MATERIAL ATTENDANT:GENE DATE/TIME TRANSCRIBED:2008 CONFIDENTIAL, DO NOT COPY WITHOUT APPROPRIATE AUTHORIZATION. < Electronically signed in Other Vendor System> SIGNED BY: MARY NORRIS MD 12/29/162013 Initial ED EKG: normal axis, normal intervals, normal p-waves, normal QRS complex, normal sinus rhythm, no ST T wave changes, 70 BPM Comments: 12/29/2016 8:18:11 PM: I was at the patient's bedside for re-evaluation. She reported that the head pain is better, but not gone completely. Also still reported nausea. Requesting water. Updated the patient on imaging and laboratory studies. 12/29/2016 8:53:12 PM: Patient reported complete relief of symptoms. stable for discharge home. (ASIYA MORGAN,TEVIN) Plan of Care: Orders Procedure Date/time Status THYROID STIMULATING HORMONE 12/29 1820 Complete TROPONIN LEVEL 12/29 1820 Complete LIPID PANEL 12/29 1820 Complete HUMAN BETA HCG SCREEN 12/29 1820 Complete FREE T4 12/29 1820 Complete COMPREHENSIVE METABOLIC PANEL 12/29 1820 Complete CBC WITHOUT DIFFERENTIAL 12/29 1820 Complete EKG 12/29 1808 Active Laboratory Tests 12/29/16 1831: Anion Gap 10, Estimated GFR > 60, BUN/Creatinine Ratio 16.3, Glucose 98, Calcium 9.0, Total Bilirubin 0.3, AST 16, ALT 39, Alkaline Phosphatase 61, Troponin I < 0.01, Total Protein 6.8, Albumin 3.9, Globulin 2.9, Albumin/Globulin Ratio 1.3, Triglycerides 220 H, Cholesterol 185, LDL Cholesterol, Calc 105, HDL Cholesterol 36 L, Cholesterol/HDL Ratio 5 H, TSH 12.600 H, Free T4 0.95, Total Beta HCG NEGATIVE, CBC w Diff NO MAN DIFF REQ, RBC 3.99 L, MCV 88.6, MCH 29.9, RDW 13.6, MPV 7.2 L, Gran % 66.9, Lymphocytes % 25.5, Monocytes % 5.2, Eosinophils % 1.8, Basophils % 0.6, Absolute Granulocytes 5.2, Absolute Lymphocytes 2.0, Absolute Monocytes 0.4, Absolute Eosinophils 0.1, Absolute Basophils 0, PUBS MCHC 33.8 Departure Departure Disposition: HOME OR SELF CARE Condition: Stable Clinical Impression Primary Impression: Migraine Qualifiers: Migraine type: unspecified Status migrainosus presence: without status migrainosus Intractability: not intractable Qualified Code: G43.909 - Migraine, unspecified, not intractable, without status migrainosus Referrals: LINNETTE MOE,KEON (PCP/Family) Additional Instructions: Rest and stay hydrated. Return for any worsening symptoms or concerns. Departure Forms: Customer Survey General Discharge Information (ASIYA MORGAN,TEVIN) PA/STATOR TESTER Co-Sign Statement Statement: ED Attending supervision documentation- [] I saw and evaluated the patient. I have also reviewed all the pertinent lab results and diagnostic results. I agree with the findings and the plan of care as documented in the PA's/STATOR TESTER's documentation. [X] I have reviewed the ED Record and agree with the PA's/STATOR TESTER's documentation. [] Additions or exceptions (if any) to the PAs/STATOR TESTER's note and plan are summarized below: [] (BART MOE,KEON)
--- NOTE | 2016-12-29 20:14 | CT SCAN REPORT ---
EXAMINATION: CT HEAD WITHOUT CONTRAST CLINICAL INFORMATION: Rule out intracranial hemorrhage or mass. Migraine headaches. COMPARISON: Head CT from 06/15/2016. TECHNIQUE: Contiguous axial imaging was performed from the skull base to vertex without intravenous administration of contrast. DLP: 614.81 mGy-cm FINDINGS: There is no evidence of acute intracranial hemorrhage or territorial infarction. No abnormal mass effect or midline shift is seen. Walker to white matter differentiation is well preserved. No extra-axial fluid collections are identified. The ventricles are normal in size. There is no abnormal attenuation within the brain parenchyma. The osseous structures and soft tissues are normal. The mastoid air cells and visualized portions of the paranasal sinuses are well aerated. IMPRESSION: No acute intracranial pathology.
[2016-12-29 20:31] VITALS: BP 118/71
== END 2016-12-29 21:03 ==
LOC: ERH 18:08
PROVIDERS: Physician Assistant
DX: G43.909 Migraine, unspecified, not intractable, without status migrainosus (principal)
CPT/HCPCS: 93005; 93010; 96374; 96375; 96376; J1200; J2405; J2765

== ENCOUNTER 2017-02-08 12:27 | Emergency (ER) | payer OTHER ==
[~2017-02-08] VITALS: Ht 157.5 cm; Wt 79.8 kg
--- NOTE | 2017-02-08 12:54 | ED GENERAL ADULT ---
History of Present Illness General Chief Complaint: General Adult Stated Complaint: PT HAS HEADACHE,VOMITNG Source: patient Exam Limitations: no limitations Vital Signs & Intake/Output Vital Signs & Intake/Output Vital Signs Date Time Temp Pulse Resp B/P B/P Pulse O2 O2 Flow FiO2 Mean Ox Delivery Rate 02/08 1516 64 18 102/65 96 Room Air 02/08 1231 98.7 75 16 129/80 98 Room Air Allergies Coded Allergies: morphine (Intermediate, ITCHING, HIVES 12/29/16) Reconcile Medications Albuterol Sulfate 2.5 MG/3 ML (0.083 %) VIAL.NEB 1 Vial INH/LUIZA 4 TIMES/DAY PRN ASTHMA (Reported) Albuterol Sulfate (Proair Hfa) 90 MCG HFA.AER.AD 2 PUF INH Q4-6 PRN PRN SOB ( Reported) Apixaban (Eliquis) 2.5 MG TABLET 2.5 MG PO BID BLOOD THINNER Butalb/Acetaminophen/Caffeine (Fioricet 50-300-40 MG Capsule) 50 MG-300 MG-40 MG CAPSULE 1 TAB PO TID PRN HEADACHES Cyanocobalamin (Vitamin B-12) (Vitamin B-12) 250 MCG TABLET 1 TAB PO DAILY B12 DEFICIENCY Famotidine (Pepcid) 20 MG TABLET 1 TAB PO DAILY GERD (Reported) Ferrous Sulfate 325 MG TABLET.DR 1 TAB PO DAILY IRON DEF ANEMIA Furosemide (Lasix) 20 MG TABLET 1 TAB PO DAILY volume overload Ibuprofen 800 MG TABLET 1 TAB PO Q6PRN PRN pain Levothyroxine Sodium 125 MCG TABLET 1 TAB PO DAILY AC THYROID (Reported) Sertraline HCl (Zoloft) 100 MG TABLET 1 TAB PO DAILY DEPRESSION (Reported) Topiramate (Topamax) 50 MG TABLET 1 TAB PO BID MIGRAINE PROPHYLAXIS Please make an appointment with your Neurologist by the end of this week 03/26/16 so that your medication can be uptitrated as per their recommendations. Trazodone HCl 150 MG TABLET 1 TAB PO QHS SLEEP (Reported) Triage Note: 36 Y/O FEMALE C/O HEADACHE, N/V/D X A FEW DAYS. STATES SHE RETURNED FROM [place] 1 WEEK AGO AND HASNT FELT WELL SINCE. AFEBRILE Triage Nurses Notes Reviewed? yes : No Patient currently breastfeeds: No HPI: Female history of chronic migraines, seizures, asthma, PE/DVT (currently on Eliquis), hypothyroid, presenting with headache 2 days. Reports gradual onset of throbbing left-sided headache that initially began while she was sitting at the dinner table eating, and has gradually worsened since then. Endorses photophobia, phonophobia, nausea, vomiting, diarrhea. Patient states that she always gets nausea and vomiting with her migraines, and that this feels like her usual migraine but she has been unable to break at home. Denies blurry vision, lightheadedness, dizziness, abdominal pain. No recent head trauma. Has tried Fioricet without relief. Currently managed on Topamax for preventative migraine measures, reports that she has been having increasing frequency in breakthrough migraines while on this medication. (GWENDOLYN BUSTILLOS PA-C) Past History Travel History Traveled to [place] past 21 day No Medical History Any Pertinent Medical History? 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 No (GWENDOLYN BUSTILLOS PA-C) Review of Systems Review of Systems Constitutional: Reports: no symptoms. Respiratory: Reports: no symptoms. Cardiovascular: Reports: no symptoms. GI: Reports: diarrhea, nausea, vomiting. Denies: abdominal pain. Genitourinary: Reports: no symptoms. Musculoskeletal: Reports: no symptoms. Neurological/Psychological: Reports: headache. Denies: confusion, numbness, paresthesia, tingling, tremors, tonic-clonic seizures. 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 No CVA/TIA Diagnosis: No Severe Sepsis Present: No Septic Shock Present: No (GWENDOLYN BUSTILLOS PA-C) Progress Differential Diagnoses I considered the following diagnoses in my evaluation of the patient: [Migraine versus tension headache versus cluster headache versus sinus subarachnoid hemorrhage.] Plan of Care: Current Medications Sig/Ranjeet Start time Last Medication Dose Stop Time Status Admin Ketorolac 30 MG ONCE ONE 02/08 1315 CAN Tromethamine 02/08 1316 (Toradol) Subarachnoid hemorrhage considered as the patient is currently on anticoagulation and stenting with a headache that is associated with vomiting. However there is a low concern for subarachnoid hemorrhage as she is describing a headache that was gradual in onset, had onset in the absence of exertion, and that it feels just like her usual migraines that is always associated with nausea and vomiting. Threefore, no indication for head CT at this time. Patient child with Reglan, Benadryl, IV fluids and had complete resolution of her headache. She will follow-up with (her neurolgosit) to discuss switching to a different preventative medication given that he is having increased frequency and breakthrough migraines. (GWENDOLYN BUSTILLOS PA-C) Initial ED EKG: none (GWENDOLYN BUSTILLOS PA-C) Departure Departure Disposition: HOME OR SELF CARE Condition: Stable Clinical Impression Primary Impression: Headache Referrals: LINNETTE MOE,KEON (PCP/Family) Additional Instructions: Continue taking your migraine medications as prescribed by . Follow-up with in the next 48 hours for reevaluation, and to discuss the possibility of switching to a different preventative migraine medication that may better control your migraines. Return to the ED for any normal worsening symptoms. Departure Forms: Customer Survey General Discharge Information (GWENDOLYN BUSTILLOS PA-C) PA/PHOTO STYLIST Co-Sign Statement Statement: ED Attending supervision documentation- [] I saw and evaluated the patient. I have also reviewed all the pertinent lab results and diagnostic results. I agree with the findings and the plan of care as documented in the PA's/PHOTO STYLIST's documentation. [X] I have reviewed the ED Record and agree with the PA's/PHOTO STYLIST's documentation. [] Additions or exceptions (if any) to the PAs/PHOTO STYLIST's note and plan are summarized below: [] (BART MOE,KEON) Critical Care Note Critical Care Note Critical Care Time: non-applicable (TRESSA MORGAN,GWENDOLYN)
[2017-02-08 15:16] VITALS: BP 102/65
== END 2017-02-08 15:50 ==
LOC: ERH 12:27
DX: R51 Headache (principal); R11.10 Vomiting, unspecified
CPT/HCPCS: 96374; 96375; J1200; J2765

== ENCOUNTER 2017-10-16 11:12 | Emergency (ER) | payer OTHER ==
[~2017-10-16] VITALS: Ht 157.5 cm; Wt 75.8 kg
[~2017-10-16 11:12] MED LIST changes: +FEROSUL325 M1 PO; +LEVOXYL150 MCG PO; +MAXALT10 M1 PO; +MECLIZINE HCL25 MG PO; +ZOFRAN ODT4 M1 SL
--- NOTE | 2017-10-16 12:04 | ED GENERAL ADULT ---
History of Present Illness General Chief Complaint: Headache Stated Complaint: TOM Source: patient Exam Limitations: no limitations Vital Signs & Intake/Output Vital Signs & Intake/Output Vital Signs Date Time Temp Pulse Resp B/P B/P Pulse O2 O2 Flow FiO2 Mean Ox Delivery Rate 10/16 1511 99.0 67 16 114/80 94 Room Air 10/16 1134 99.1 81 16 123/83 97 Room Air Allergies Coded Allergies: morphine (Intermediate, ITCHING, HIVES 12/29/16) metoclopramide (From REGLAN) (RED SPIDER VEINS AND HIVES 06/24/17) Reconcile Medications Albuterol Sulfate 2.5 MG/3 ML (0.083 %) VIAL.NEB 1 Vial INH/LUIZA 4 TIMES/DAY PRN ASTHMA (Reported) Albuterol Sulfate (Proair Hfa) 90 MCG HFA.AER.AD 2 PUF INH Q4-6 PRN PRN SOB ( Reported) Apixaban (Eliquis) 2.5 MG TABLET 2.5 MG PO BID BLOOD THINNER Cyanocobalamin (Vitamin B-12) (Vitamin B-12) 250 MCG TABLET 1 TAB PO DAILY B12 DEFICIENCY Famotidine (Pepcid) 20 MG TABLET 1 TAB PO DAILY GERD (Reported) Ferrous Sulfate (Ferosul) 325 MG (65 MG IRON) TABLET 1 TAB PO EOD SUPPLEMENT (Reported) Ibuprofen 800 MG TABLET 1 TAB PO Q6PRN PRN pain Levothyroxine Sodium (Levoxyl) 150 MCG TABLET 1 TAB PO DAILY THYROID ( Reported) Ondansetron (Zofran Odt) 4 MG TAB.RAPDIS 1 TAB SL TID PRN nausea Rizatriptan Benzoate (Maxalt) 10 MG TABLET 1 TAB PO AD PRN migraine Topiramate (Topamax) 50 MG TABLET 1 TAB PO BID MIGRAINE PROPHYLAXIS Please make an appointment with your Neurologist by the end of this week 03/26/16 so that your medication can be uptitrated as per their recommendations. Trazodone HCl 150 MG TABLET 1 TAB PO QHS SLEEP (Reported) Triage Note: PT TO ED FOR MIGRAINE X SEVERAL DAYS, NO RELIEF WITH HOME MEDS. Triage Nurses Notes Reviewed? yes Onset: Abrupt Duration: hour(s): Timing: recent history : No Patient currently breastfeeds: No HPI: 10/16/17 12:31 PM 37-year-old female presents to the emergency department complaining of an ongoing migraine headache. She says she has a history of migraines and has a refractory migraine, she is taking Maxalt and ibuprofen; her usual medications. She also admits to pleuritic chest wall pain. And a productive cough. She was started on Zithromax with minimal relief. She has past medical history of asthma and migraine headaches. She also complains of myalgias. Past History Travel History Traveled to [place] past 21 day No Medical History Any Pertinent Medical History? 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 No Review of Systems Review of Systems Constitutional: Reports: chills, malaise, weakness. EENTM: Denies: visual changes. Respiratory: Reports: cough. Denies: sputum production. Cardiovascular: Reports: no symptoms. GI: Reports: no symptoms. Genitourinary: Reports: no symptoms. Musculoskeletal: Reports: muscle pain. Skin: Denies: rash. Neurological/Psychological: Reports: no symptoms. Hematologic/Endocrine: Reports: no symptoms. Immunologic/Allergic: Reports: no symptoms. Physical Exam Physical Exam General Appearance: well developed/nourished, alert, awake, anxious Head: atraumatic, normal appearance Eyes: Bilateral: normal appearance, PERRL, EOMI. Ears, Nose, Throat: normal pharynx, normal ENT inspection, hearing grossly normal Neck: normal inspection, supple Respiratory: normal breath sounds, chest non-tender, no respiratory distress Cardiovascular: regular rate/rhythm Peripheral Pulses: 4+ radial (R), 4+ radial (L) Gastrointestinal: soft, non-tender Back: normal inspection, normal range of motion Extremities: no edema Neurologic/Psych: no motor/sensory deficits, awake, alert, oriented x 3 Skin: intact, normal color, warm/dry Core Measures ACS in differential dx? No CVA/TIA Diagnosis: No Sepsis Present: No Sepsis Focused Exam Completed? No Progress Differential Diagnoses I considered the following diagnoses in my evaluation of the patient: Influenza, ; ACS-she has pleuritic chest wall pain with cough and yellow sputum. It has been ongoing for several days. Troponin is nondetectable and EKG is unremarkable, migraine headache, viral syndrome] Plan of Care: Orders Procedure Date/time Status RAPID VIRAL INFLUENZA A 10/16 1230 Complete TROPONIN LEVEL 10/16 1230 Complete COMPREHENSIVE METABOLIC PANEL 10/16 1230 Complete CBC WITHOUT DIFFERENTIAL 10/16 1230 Complete EKG 10/16 1230 Active Laboratory Tests 10/16/17 1324: Anion Gap 8, Estimated GFR > 60, BUN/Creatinine Ratio 15.0, Glucose 85, Calcium 9.5, Total Bilirubin 0.3, AST 14, ALT 26, Alkaline Phosphatase 56, Troponin I < 0.01, Total Protein 6.6, Albumin 3.9, Globulin 2.7, Albumin/Globulin Ratio 1.4, CBC w Diff NO MAN DIFF REQ, RBC 4.30, MCV 90.0, MCH 29.3, MCHC 32.6 L, RDW 13.8 , MPV 7.0 L, Gran % 65.5, Lymphocytes % 26.7, Monocytes % 4.6, Eosinophils % 2.7, Basophils % 0.5, Absolute Granulocytes 4.5, Absolute Lymphocytes 1.8, Absolute Monocytes 0.3, Absolute Eosinophils 0.2, Absolute Basophils 0 Microbiology 10/16 1250 NASOPHARYN: Influenza Virus A & B Rapid Smear - COMP Initial ED EKG: NSR, nonspecific ST T wave chg Prior EKG: unchanged Repeat EKG: unchanged Departure Departure Disposition: STILL A PATIENT Condition: Stable Clinical Impression Primary Impression: Migraine Secondary Impressions: Viral syndrome Referrals: Austin Avila MD (PCP/Family) Departure Forms: Customer Survey General Discharge Information Comments 10/16/17 The patient received IV fluids, IV Solu-Medrol, IV Toradol, IV Benadryl. She took a nap and then woke up with complete resolution of her pain. EKG is unremarkable. She was discharged and will follow-up with her doctor this week. Critical Care Note Critical Care Note Critical Care Time: non-applicable
[2017-10-16 13:51] LABS: ABSOLUTE BASOPHIL COUNT 0 /CUMM (0.0-0.2); ABSOLUTE EOSINOPHIL COUNT 0.2 /CUMM (0.0-0.7); ABSOLUTE GRANULOCYTE CT 4.5 /CUMM (1.4-6.5); ABSOLUTE LYMPH COUNT 1.8 /CUMM (1.2-3.4); ABSOLUTE MONOCYTE COUNT 0.3 /CUMM (0.10-0.60); BASOPHIL % 0.5 % (0.0-2.0); EOSINOPHIL % 2.7 % (0-5); GRANULOCYTE % 65.5 % (42.2-75.2); HEMATOCRIT 38.7 % (37-47); MEAN CORPUSCULAR HGB 29.3 PG (27.0-31.0); MEAN CORPUSCULAR HGB CONC 32.6 G/DL (33.0-37.0); PLATELET COUNT 394 /CUMM (130-400); RBC DISTRIBUTION WIDTH 13.8 % (11.5-14.5); WHITE BLOOD CELL COUNT 6.9 /CUMM (4.8-10.8)
[2017-10-16 15:11] VITALS: BP 114/80
== END 2017-10-16 15:55 ==
LOC: ERH 11:12
PROVIDERS: Emergency Medicine
DX: G43.909 Migraine, unspecified, not intractable, without status migrainosus (principal); B34.9 Viral infection, unspecified; R07.89 Other chest pain
CPT/HCPCS: 87804; 87804-59; 93005; 93010; 96374; 96375; J1200; J1885; J2930

== ENCOUNTER 2017-10-18 16:35 | Emergency (ER) | payer OTHER ==
[~2017-10-18] VITALS: Ht 157.5 cm; Wt 75.8 kg
--- NOTE | 2017-10-18 19:02 | ED UPPER/LOWER EXTREMITY COMPL ---
History of Present Illness General Chief Complaint: Upper Extremity Problem Stated Complaint: SWOLLEN PAINFUL LT UPPER ARM Source: patient Exam Limitations: no limitations Vital Signs & Intake/Output Vital Signs & Intake/Output Vital Signs Date Time Temp Pulse Resp B/P B/P Pulse O2 O2 Flow FiO2 Mean Ox Delivery Rate 10/18 1909 98.4 76 18 102/80 98 Room Air 10/18 1839 Room Air 10/18 1638 97.0 96 18 123/84 99 Room Air Room Air Allergies Coded Allergies: morphine (Intermediate, ITCHING, HIVES 12/29/16) metoclopramide (From REGLAN) (RED SPIDER VEINS AND HIVES 06/24/17) Reconcile Medications Albuterol Sulfate 2.5 MG/3 ML (0.083 %) VIAL.NEB 1 Vial INH/LUIZA 4 TIMES/DAY PRN ASTHMA (Reported) Albuterol Sulfate (Proair Hfa) 90 MCG HFA.AER.AD 2 PUF INH Q4-6 PRN PRN SOB ( Reported) Apixaban (Eliquis) 2.5 MG TABLET 2.5 MG PO BID BLOOD THINNER Cyanocobalamin (Vitamin B-12) (Vitamin B-12) 250 MCG TABLET 1 TAB PO DAILY B12 DEFICIENCY Famotidine (Pepcid) 20 MG TABLET 1 TAB PO DAILY GERD (Reported) Ferrous Sulfate (Ferosul) 325 MG (65 MG IRON) TABLET 1 TAB PO EOD SUPPLEMENT (Reported) Ibuprofen 800 MG TABLET 1 TAB PO Q6PRN PRN pain Levothyroxine Sodium (Levoxyl) 150 MCG TABLET 1 TAB PO DAILY THYROID ( Reported) Ondansetron (Zofran Odt) 4 MG TAB.RAPDIS 1 TAB SL TID PRN nausea Rizatriptan Benzoate (Maxalt) 10 MG TABLET 1 TAB PO AD PRN migraine Topiramate (Topamax) 50 MG TABLET 1 TAB PO BID MIGRAINE PROPHYLAXIS Please make an appointment with your Neurologist by the end of this week 03/26/16 so that your medication can be uptitrated as per their recommendations. Trazodone HCl 150 MG TABLET 1 TAB PO QHS SLEEP (Reported) Triage Note: PT TO ED WITH C/O LEFT UPPER ARM PAIN, WAS SEEN IN ED RECENTLY "IT'S WHERE THEY TRIED TO GET BLOOD AND IV'S, AND I'M PRONE TO BLOOD CLOTS, I CAN HARDLY MOVE MY LEFT ARM". Triage Nurses Notes Reviewed? yes Onset: Abrupt Duration: day(s): (2), constant, continues in ED Timing: recent history Severity: moderate, severe Pain/Injury Location: Left: Arm. No Modifying Factors: none : No Patient currently breastfeeds: No HPI: 37-year-old female comes into emergency room with pain and swelling to her left arm. Symptoms are to past couple days. She is on eliquis. She has a history of pulmonary embolisms and blood clots previously. Denies any other associated symptoms. Sharp throbbing pain. Past History Travel History Traveled to [place] past 21 day No Medical History Any Pertinent Medical History? 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 No Review of Systems Review of Systems Constitutional: Reports: no symptoms. EENTM: Reports: no symptoms. Respiratory: Reports: no symptoms. Cardiovascular: Reports: no symptoms. Gastrointestinal/Abdominal: Reports: no symptoms. Genitourinary: Reports: no symptoms. Musculoskeletal: Reports: no symptoms. Skin: Reports: see HPI. Neurological/Psychological: Reports: no symptoms. Hematologic/Endocrine: Reports: no symptoms. Immunological: Reports: no symptoms. All Other Systems: Reviewed and Negative Physical Exam Physical Exam General Appearance: well developed/nourished, mild distress Head: atraumatic Eyes: Bilateral: normal appearance. Ears, Nose, Throat: normal ENT inspection, hearing grossly normal Neck: normal inspection Cardiovascular/Respiratory: no respiratory distress Back: normal inspection Elbow Left: mild swelling to the left forearm/left upper arm, tenderness to palpation, no erythema, no warmth, radial pulse intact, sensation intact, Neurologic/Tendon: normal sensation, normal motor functions, normal tendon functions, responds to pain, no evidence tendon injury, no pulse deficit Skin: intact, normal color, warm/dry Lymphatic: no anterior cervical magnolia Progress Differential Diagnosis: DVT, superficial clot, cellulitis, muscle strain, Plan of Care: Orders Procedure Date/time Status US-DUPLEX VENOUS EXTREM UNI 10/18 1643 Active Diagnostic Imaging: Viewed by Me: Ultrasound. Discussed w/RAD: Ultrasound. Radiology Impression: PATIENT: GILDA HAMPTON PRESENT AGE: 37 PATIENT ACCOUNT NO: [id number] : 78 LOCATION: [facility] ORDERING PHYSICIAN: Juan Carlos CAMPOS SERVICE DATE: 10/18/17 EXAM TYPE : US - US-DUPLEX VENOUS EXTREM UNI EXAMINATION: DOPPLER VENOUS ULTRASOUND UPPER EXTREMITY, LEFT CLINICAL INFORMATION: Left upper extremity pain. Swelling. COMPARISON: None. TECHNIQUE: Grayscale, Doppler and spectral analysis of the upper extremity and neck was performed. FINDINGS: There is nonocclusive superficial thrombus within the right basilic vein. There is no evidence for a deep venous thrombosis within the visualized upper extremity and neck veins. There is normal flow, compression and augmentation. IMPRESSION: Nonocclusive superficial thrombus within the left basilic vein. DICTATED BY: Mark Avery MD DATE/TIME DICTATED:10/18/171846 FOOD SERVICE REPRESENTATIVE:GENE DATE/TIME TRANSCRIBED:10/18/171846 CONFIDENTIAL, DO NOT COPY WITHOUT APPROPRIATE AUTHORIZATION. <Electronically signed in Other Vendor System> SIGNED BY: Mark Avery MD 10/18/171901 Comments: 10/18/2017 9:36:[address] MARTELL vascular doctor. Nothing to do acutely for this superficial thrombosis. Patient will follow-up as outpatient as needed. Resume anticoagulants. Return if any other concerns worsening symptoms. He understands and agrees with plan of care. Departure Departure Disposition: HOME OR SELF CARE Condition: Stable Clinical Impression Primary Impression: Acute basilic vein embolism Referrals: Austin Avila MD (PCP/Family) Heidi MOE,Jay Kwong Additional Instructions: Continue your oral anticoagulants. Follow-up with your nursing attendant your primary care doctor. Follow-up with vascular doctor provided. Return if any concerns worsening symptoms. Please go over all results of today's visit with your primary care doctor. Contact your primary care doctor to let them know you were here in the emergency room. There may be nonspecific findings which may not be related to your visit today here in the emergency room but may require further evaluation and chronic monitoring by your primary care doctor. If you had a laceration today the chance of foreign body always remains. You should follow-up with your primary care doctor for recheck in 3-5 days for a wound check. If you had an x-ray done there is a chance that a fracture could have been missed on initial read and you should follow-up with your primary care doctor for repeat x-rays if symptoms persist. If your blood pressure was elevated here in the emergency room please have rechecked by kaya primary care doctor within the next 48. If you were prescribed a narcotic here in the emergency room or any type of controlled substances you're not allowed to drive while taking this medication or operate any type of heavy machinery. Narcotics can make you feel lightheaded dizziness nausea and can cause constipation. You may need to cook pickled meat a stool softener. Thank you for choosing [facility] emergency room. Please return to the emergency room immediately if you have any other concerns worsening of symptoms. Departure Forms: Customer Survey General Discharge Information
[2017-10-18 19:09] VITALS: BP 102/80
== END 2017-10-18 19:52 ==
LOC: ERH 16:35
DX: I82.612 Acute embolism and thrombosis of superficial veins of left upper extremity (principal)

== ENCOUNTER 2017-12-15 12:27 | Emergency (ER) | payer OTHER ==
[~2017-12-15] VITALS: Ht 157.5 cm; Wt 73.9 kg
--- NOTE | 2017-12-15 14:29 | ULTRASOUND REPORT ---
EXAMINATION: US TRIPLEX UPPER EXTREMITY, LEFT CLINICAL INFORMATION: This is a 37-year-old female with left upper extremity pain. History of deep vein thrombosis. Pain and swelling. COMPARISON: Comparison is made to a previous study dated to which demonstrated superficial nonocclusive thrombus in the left basilic vein. TECHNIQUE: Color-flow triplex imaging with spectral analysis and compression Doppler were performed on the upper extremity. FINDINGS: Respiratory variation, normal compression and augmented flow are evaluated throughout the upper extremity There is occlusive thrombus within the basilic vein. This appears to be more pronounced on the current study. Previously, the thrombus was partially occlusive. No deep vein thrombosis is seen. IMPRESSION: 1. No deep vein thrombosis in the left upper extremity. 2. There is superficial thrombus in the left basilic vein. This appears more pronounced on the current study when compared to the previous study.
[2017-12-15 14:42] VITALS: BP 111/74
--- NOTE | 2017-12-15 16:01 | ED UPPER/LOWER EXTREMITY COMPL ---
History of Present Illness General Chief Complaint: General Adult Stated Complaint: SIB PCP, L ARM PAIN RADIATING TO CHEST Source: patient Exam Limitations: no limitations Vital Signs & Intake/Output Vital Signs & Intake/Output Vital Signs Date Time Temp Pulse Resp B/P B/P Pulse O2 O2 Flow FiO2 Mean Ox Delivery Rate 12/15 1442 97.2 75 15 111/74 98 Room Air Room Air 12/15 1300 97.4 80 16 128/86 96 Room Air Allergies Coded Allergies: morphine (Intermediate, ITCHING, HIVES 12/29/16) metoclopramide (From REGLAN) (RED SPIDER VEINS AND HIVES 06/24/17) Reconcile Medications Albuterol Sulfate 2.5 MG/3 ML (0.083 %) VIAL.NEB 1 Vial INH/LUIZA 4 TIMES/DAY PRN ASTHMA (Reported) Albuterol Sulfate (Proair Hfa) 90 MCG HFA.AER.AD 2 PUF INH Q4-6 PRN PRN SOB ( Reported) Apixaban (Eliquis) 2.5 MG TABLET 2.5 MG PO BID BLOOD THINNER Cyanocobalamin (Vitamin B-12) (Vitamin B-12) 250 MCG TABLET 1 TAB PO DAILY B12 DEFICIENCY Famotidine (Pepcid) 20 MG TABLET 1 TAB PO DAILY GERD (Reported) Ferrous Sulfate (Ferosul) 325 MG (65 MG IRON) TABLET 1 TAB PO EOD SUPPLEMENT (Reported) Ibuprofen 800 MG TABLET 1 TAB PO Q6PRN PRN pain Levothyroxine Sodium (Levoxyl) 150 MCG TABLET 1 TAB PO DAILY THYROID ( Reported) Ondansetron (Zofran Odt) 4 MG TAB.RAPDIS 1 TAB SL TID PRN nausea Rizatriptan Benzoate (Maxalt) 10 MG TABLET 1 TAB PO AD PRN migraine Topiramate (Topamax) 50 MG TABLET 1 TAB PO BID MIGRAINE PROPHYLAXIS Please make an appointment with your Neurologist by the end of this week 03/26/16 so that your medication can be uptitrated as per their recommendations. Trazodone HCl 150 MG TABLET 1 TAB PO QHS SLEEP (Reported) Triage Note: 37 Y/O FEMALE C/O CONTINUED L ARM "PAIN AND IT ASIF AND IS NUMB ALL THE TIME". STATES SHE WAS DIAGNOSED WITH A BLOOD CLOT IN SAME ARM APPROX 1 MONTH AGO; HAS BEEN TAKING ELIQUIS 2.5MG BID BUT STATES THE ARM FEELS "DIFFERENT/WORSE". FEELS A SMALL HARD AREA TO INNER LAC AREA. CALLED DOCTOR DUE TO CONCERN AND WAS ADVISED TO COME TO ED. SPOKE WITH ANDRES TSAI TO BE ORDERED. Triage Nurses Notes Reviewed? yes : No Patient currently breastfeeds: No HPI: Patient presents for evaluation of left upper extremity superficial thrombosis that she has experienced since September thought to be due to a peripheral IV a month prior. Patient states she's been having area status of pains in the extremity since. She has been taking Eliquis 2.5 mg twice daily. General ultrasound follow-up today which showed a persistence of the superficial thrombosis. She was asked to be reevaluated in the emergency department by her doctor. Past History Travel History Traveled to [facility] past 21 day No Medical History Any Pertinent Medical History? 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 No Review of Systems Review of Systems Constitutional: Reports: no symptoms. EENTM: Reports: no symptoms. Respiratory: Reports: no symptoms. Cardiovascular: Reports: no symptoms. Gastrointestinal/Abdominal: Reports: no symptoms. Genitourinary: Reports: no symptoms. Musculoskeletal: Reports: no symptoms. Skin: Reports: see HPI. Neurological/Psychological: Reports: no symptoms. Hematologic/Endocrine: Reports: no symptoms. Immunological: Reports: no symptoms. All Other Systems: Reviewed and Negative Physical Exam Physical Exam General Appearance: SEE BELOW Comments: Gen.: Well-nourished, well-developed, no acute respiratory distress. Head: Normocephalic, atraumatic. Eyes: Normal inspection bilaterally Ears: Normal inspection bilaterally Nose: Normal inspection Throat/mouth : Moist mucosa Neck: Supple, full range of motion, no goiter Heart: Regular rate and rhythm Lungs: Quiet respirations Back: Normal range of motion Extremities: Left upper extremity: Linear cord of the lateral aspect of the left arm consistent with thrombosis with no apparent erythema soft tissue swelling or cellulitis. The left upper extremity is neurovascularly intact distally. Neurologic: Cranial nerves grossly intact, speech is clear Skin: warm and dry Psychiatric: Calm, cooperative, no apparent delusions or hallucinations Progress Differential Diagnosis: THROMBOPHLEBITIS, CELLULITIS, ABSCESS, Plan of Care: Orders Procedure Date/time Status EKG 12/15 1228 Active Departure Departure Disposition: HOME OR SELF CARE Condition: Stable Clinical Impression Primary Impression: Superficial venous thrombosis of left arm Referrals: Austin Avila MD (PCP/Family) Additional Instructions: Continue your Eliquis. Follow-up with Dr. Flannery (vascular surgeon) for reevaluation of your thrombosis next week. Notify your primary care physician of this emergency department visit and treatment plan. Return if any concerns or sudden worsening. Thank you for choosing the [facility] Emergency Department for your care. It was a pleasure to serve you today. Royal Cox M.D. [facility] Departure Forms: Customer Survey General Discharge Information
== END 2017-12-15 16:43 ==
LOC: ERH 12:27
DX: I82.612 Acute embolism and thrombosis of superficial veins of left upper extremity (principal); M79.602 Pain in left arm
CPT/HCPCS: 93005; 93010

== ENCOUNTER 2017-12-21 12:59 | Emergency (ER) | payer OTHER ==
[~2017-12-21] VITALS: Ht 157.5 cm; Wt 73.5 kg
--- NOTE | 2017-12-21 13:47 | ED UPPER/LOWER EXTREMITY COMPL ---
History of Present Illness General Chief Complaint: General Adult Stated Complaint: LUE SUPERFICIAL CLOT, PAIN NOW RADIATING TO LLE Source: patient, old records Exam Limitations: no limitations Vital Signs & Intake/Output Vital Signs & Intake/Output Vital Signs Date Time Temp Pulse Resp B/P B/P Pulse O2 O2 Flow FiO2 Mean Ox Delivery Rate 12/21 1500 98.2 70 20 101/61 96 Room Air 12/21 1305 97.8 110 16 123/85 98 Room Air Allergies Coded Allergies: morphine (Intermediate, ITCHING, HIVES 12/29/16) metoclopramide (From REGLAN) (RED SPIDER VEINS AND HIVES 06/24/17) Reconcile Medications Albuterol Sulfate 2.5 MG/3 ML (0.083 %) VIAL.NEB 1 Vial INH/LUIZA 4 TIMES/DAY PRN ASTHMA (Reported) Albuterol Sulfate (Proair Hfa) 90 MCG HFA.AER.AD 2 PUF INH Q4-6 PRN PRN SOB ( Reported) Apixaban (Eliquis) 2.5 MG TABLET 2.5 MG PO BID BLOOD THINNER Cyanocobalamin (Vitamin B-12) (Vitamin B-12) 250 MCG TABLET 1 TAB PO DAILY B12 DEFICIENCY Famotidine (Pepcid) 20 MG TABLET 1 TAB PO DAILY GERD (Reported) Ferrous Sulfate (Ferosul) 325 MG (65 MG IRON) TABLET 1 TAB PO EOD SUPPLEMENT (Reported) Ibuprofen 800 MG TABLET 1 TAB PO Q6PRN PRN pain Levothyroxine Sodium (Levoxyl) 150 MCG TABLET 1 TAB PO DAILY THYROID ( Reported) Ondansetron (Zofran Odt) 4 MG TAB.RAPDIS 1 TAB SL TID PRN nausea Rizatriptan Benzoate (Maxalt) 10 MG TABLET 1 TAB PO AD PRN migraine Topiramate (Topamax) 50 MG TABLET 1 TAB PO BID MIGRAINE PROPHYLAXIS Please make an appointment with your Neurologist by the end of this week 03/26/16 so that your medication can be uptitrated as per their recommendations. Trazodone HCl 150 MG TABLET 1 TAB PO QHS SLEEP (Reported) Triage Note: PT TO ER C/C MYESHA AND LLE PAIN WITH SWELLING X 4 DAYS. SEEN IN ER ON 12/15 DIAGNOSED WITH LUE SUPERFICIAL CLOT. ON ELIQUIS 2.5 BID FOR HX OF DVT. +SWELLING TO LLE. PAIN 01/29 Triage Nurses Notes Reviewed? yes Onset: Abrupt Duration: day(s): (4), constant Timing: recent history Severity: moderate Severity Numbers: 7 Pain/Injury Location: Left: Arm, Leg. Method of Injury: unknown No Modifying Factors: none Associated Symptoms: swelling : No Patient currently breastfeeds: No HPI: 37-year-old female history of DVT on ELLIQUIS presents to the ER for evaluation complaining of swelling to her left lower extremity is been going on for the past 4 days. She denies any known injury or trauma. She is also complaining of persistent left upper extremity pain after she was diagnosed with a superficial thrombophlebitis of the arm which is been dating back since September secondary to peripheral IV. She's been taking tramadol Tylenol without improvement. No fever or chills no chest pain shortness of breath cough hemoptysis Past History Travel History Traveled to [place] past 21 day No Medical History Any Pertinent Medical History? 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 No Review of Systems Review of Systems Constitutional: Reports: see HPI. Comments Review of systems: See HPI, All other systems negative. Constitutional, no chills no fever HEENT: no sore throat no congestion Cardiovascular: No chest pain Skin: no rashes, no change in skin Respiratory: No dyspnea no cough Muscle skeletal: No joint pain, no back pain, no neck pain, Neurologic: , no headache Heme/endocrine: No bruising Physical Exam Physical Exam General Appearance: well developed/nourished, no apparent distress, alert Comments: Well-developed well-nourished patient in no apparent distress. HEENT: Atraumatic, extraocular motion intact Neck: Supple, FROM Back: FROM Cardiovascular: Regular rate and rhythms no murmurs rubs Respiratory: No respiratory distress. Patient speaking in full complete sentences. Breath sounds clear to auscultation bilaterally: NO W/R/R Extremities: Palpable cord noted to the left arm there is no surrounding erythema, nontender full range of motion; bilateral lower extremities no edema 2 + dorsalis pedis pulse no calf tenderness Neuro: awake, alert, and oriented to person, place and time. There were no obvious focal neurologic abnormalities. Skin: Warm & dry;No appreciable rash on exposed skin Psych: Mood affect normal, normal memory normal judgment. Progress Differential Diagnosis: cellulitis, DVT, sprain Plan of Care: Patient is declining anything for pain offered ultrasound ordered Repeat evaluation patient resting in no acute distress she is again declining anything to go home with for pain I discussed with her at length her ultrasound results. Advised need for close follow-up with her primary care physician and vascular surgeon information provided I answered all of her questions she feels comfortable with plan Diagnostic Imaging: Viewed by Me: Ultrasound. Discussed w/RAD: Ultrasound. Radiology Impression: PATIENT: GILDA HAMPTON PRESENT AGE: 37 PATIENT ACCOUNT NO: [id number] : 78 LOCATION: [facility] ORDERING PHYSICIAN: Jhoan CAMPOS SERVICE DATE: 12/21/175824 EXAM TYPE: US - US-UNILATERAL VENOUS DOPPLER EXAMINATION: US TRIPLEX LOWER EXTREMITY, LEFT CLINICAL INFORMATION: 37-year-old female with left lower extremity pain. COMPARISON: Bilateral lower extremity venous ultrasound 12/08/2015 TECHNIQUE: Color-flow triplex imaging with spectral analysis and compression Doppler were performed on the lower extremity. FINDINGS: Respiratory variation, normal compression and augmented flow are noted throughout the lower extremity. The visualized common femoral vein, superficial femoral vein, profunda femoral vein, popliteal vein and midcalf peroneal and posterior tibial venous segments show no evidence of deep venous thrombosis. There is no Carr's cyst. IMPRESSION: No evidence of deep venous thrombosis involving the lower extremity. DICTATED BY: Henry Dominguez DO DATE/TIME DICTATED:12/21/17 145 TREATMENT COUNSELOR:RAD.WIN DATE/TIME TRANSCRIBED:12/21/17 / 1458 CONFIDENTIAL, DO NOT COPY WITHOUT APPROPRIATE AUTHORIZATION. <Electronically signed in Other Vendor System> SIGNED BY: Henry Dominguez DO 12/21/17 1503 Departure Departure Time of Disposition: 1513 Disposition: HOME OR SELF CARE Condition: Stable Clinical Impression Primary Impression: Superficial thrombophlebitis Referrals: Austin MOE,Austin (PCP/Family) Jese Melendrez MD Additional Instructions: Follow up with vascular surgeon dr melendrez. warm compresses. continue taking your medication as prescribed. return with any concerns Departure Forms: Customer Survey General Discharge Information
[2017-12-21 15:00] VITALS: BP 101/61
--- NOTE | 2017-12-21 15:03 | ULTRASOUND REPORT ---
EXAMINATION: US TRIPLEX LOWER EXTREMITY, LEFT CLINICAL INFORMATION: 37-year-old female with left lower extremity pain. COMPARISON: Bilateral lower extremity venous ultrasound 12/08/2015 TECHNIQUE: Color-flow triplex imaging with spectral analysis and compression Doppler were performed on the lower extremity. FINDINGS: Respiratory variation, normal compression and augmented flow are noted throughout the lower extremity. The visualized common femoral vein, superficial femoral vein, profunda femoral vein, popliteal vein and midcalf peroneal and posterior tibial venous segments show no evidence of deep venous thrombosis. There is no Carr's cyst. IMPRESSION: No evidence of deep venous thrombosis involving the lower extremity.
== END 2017-12-21 15:57 ==
LOC: ERH 12:59
DX: I80.02 Phlebitis and thrombophlebitis of superficial vessels of left lower extremity (principal)

== ENCOUNTER 2018-02-01 09:44 | Emergency (ER) | payer OTHER ==
[~2018-02-01] VITALS: Ht 157.5 cm; Wt 73.0 kg
[2018-02-01] MEDS ORDERED: SERTRALINE HCL100 MG PO (11:34)
[2018-02-01] MEDS ORDERED: BUSPIRONE HCL10 M1 PO (11:34)
[2018-02-01] MEDS ORDERED: ELIQUIS5 M1 PO (11:34)
--- NOTE | 2018-02-01 12:33 | ED GENERAL ADULT ---
History of Present Illness General Chief Complaint: Chest Pain Stated Complaint: TOM/NUMBNESS LFT ARM/CP HX OF CLOTS Source: patient Exam Limitations: no limitations Vital Signs & Intake/Output Vital Signs & Intake/Output Vital Signs Date Time Temp Pulse Resp B/P B/P Pulse O2 O2 Flow FiO2 Mean Ox Delivery Rate 02/01 1624 97.2 66 18 96/62 97 02/01 1453 98.8 62 18 119/65 99 Room Air 02/01 1005 97.0 74 18 114/77 98 Room Air Allergies Coded Allergies: morphine (Intermediate, ITCHING, HIVES 12/29/16) metoclopramide (From REGLAN) (RED SPIDER VEINS AND HIVES 06/24/17) Reconcile Medications Apixaban (Eliquis) 5 MG TABLET 1 TAB PO BID BLOOD THINNER (Reported) Buspirone HCl 10 MG TABLET 1 TAB PO BID PRN ANXIETY (Reported) Levothyroxine Sodium (Levoxyl) 150 MCG TABLET 1 TAB PO DAILY THYROID ( Reported) Rizatriptan Benzoate (Maxalt) 10 MG TABLET 1 TAB PO AD PRN migraine Sertraline HCl 100 MG TABLET 1 TAB PO DAILY DEPRESSION (Reported) Trazodone HCl 150 MG TABLET 1 TAB PO QHS SLEEP (Reported) Triage Note: 37F WITH KNOWN DVT'S TO UPPER EXTREMITIES (LEFT) DEVELOPED L SIDED CP WORSE WITH DEEP BREATHING AND NON REPRODUCIBLE. REPORTS +NAUSEA AND DIFF SLEEPING. +HEADACHE. CURRENTLY TAKING ELOQUIS 5MG BID. TO EKG ALCOVE ON ARRIVAL, APPEARS SINUS RHYTHM. SAW TANKAGE GRINDER OPERATOR DR CELAYA THIS PAST WEEK AND AWAITING RESULTS. Triage Nurses Notes Reviewed? yes Onset: Gradual Duration: day(s): Timing: constant : No Patient currently breastfeeds: No HPI: 37 y/o female with h/o DVT/PE (on eliquis), hypothyroid, anxiety, depression, fibromyalgia, migraines, seizures, peripheral neuropathy presenting with CP x1 week. Reports substernal CP that radiates to her LUE. Also endorses associated paresthesias to her LUE. No worsening or alleviating factors. Saw her government operations consultant for the same a few days ago, and has outpatient w/u that is pending. Unsure of results yet. Presents now for gradually worsening pain. Denies extremity swelling, missed doses of eliquis, cough, hemoptysis, long travel, recent surgeries. Pt also c/o frontal TOM consistent with her usual migraines. Denies head trauma, visual changes, vomiting. (Vernell Montoya) Past History Travel History Traveled to [place] past 21 day No Medical History Any Pertinent Medical History? 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 No (Vernell Montoya) Review of Systems Review of Systems Constitutional: Reports: no symptoms. EENTM: Reports: no symptoms. Respiratory: Reports: no symptoms. Cardiovascular: Reports: see HPI. GI: Reports: no symptoms. Genitourinary: Reports: no symptoms. Musculoskeletal: Reports: no symptoms. Skin: Reports: no symptoms. Neurological/Psychological: Reports: see HPI. Hematologic/Endocrine: Reports: no symptoms. Immunologic/Allergic: Reports: no symptoms. (Vernell Montoya) Physical Exam Physical Exam General Appearance: well developed/nourished, no apparent distress, alert, awake , comfortable Head: atraumatic, normal appearance Eyes: Bilateral: normal appearance, PERRL, EOMI. Neck: normal inspection, supple, full range of motion Respiratory: normal breath sounds, chest non-tender, lungs clear Cardiovascular: regular rate/rhythm, normal peripheral pulses Gastrointestinal: soft, non-tender Back: normal inspection Extremities: normal inspection, no edema, no erythema or increased warmth Neurologic/Psych: no motor/sensory deficits, awake, alert, oriented x 3, normal gait, normal mood/affect, brazer controlled atmospheric furnace II-XII nml as tested, cerebellar function intact Reflexes: 2+: bicep (R), bicep (L), tricep (L), tricep (L), knee (R), knee (L), ankle (R), ankle (L). Skin: intact, normal color, warm/dry Core Measures ACS in differential dx? No CVA/TIA Diagnosis: No Sepsis Present: No Sepsis Focused Exam Completed? No (Vernell Montoya) Progress Differential Diagnoses I considered the following diagnoses in my evaluation of the patient: [Headlike likely her chronic migraines, low concern for ICH vs mass vs meningitis vs pseudotumor. CP ddx: considered ACS vs angina vs PE vs PTX vs PNA vs pleural effusion vs pericarditis vs GERD vs MSK vs anxiety ] Plan of Care: Orders Procedure Date/time Status TROPONIN LEVEL 02/01 1243 Complete PHOSPHORUS 02/01 1243 Complete MAGNESIUM 02/01 1243 Complete D-DIMER 02/01 1243 Complete CBC WITHOUT DIFFERENTIAL 02/01 1243 Complete BASIC METABOLIC PANEL 02/01 1243 Complete EKG 02/01 0948 Active Laboratory Tests 02/01/18 1452: Anion Gap 10, Estimated GFR > 60, BUN/Creatinine Ratio 16.3, Glucose 81, Calcium 9.0, Phosphorus 3.6, Magnesium 1.8, Troponin I < 0.01, D-Dimer High Sensitivty < 200, CBC w Diff NO MAN DIFF REQ, RBC 3.99 L, MCV 88.7, MCH 30.1, MCHC 34.0, RDW 13.3, MPV 7.6, Gran % 60.9, Lymphocytes % 29.3, Monocytes % 5.5, Eosinophils % 3.6, Basophils % 0.7, Absolute Granulocytes 4.1, Absolute Lymphocytes 2.0, Absolute Monocytes 0.4, Absolute Eosinophils 0.2, Absolute Basophils 0 EKG is NSR, non-ischemic, trop neg (not repeat as pain as been x1 week). Labs unremarkable including neg d-dimer. US LUE is neg for DVT. CXR unremarkable. No clear etiology for CP, but low concern for acute pathology including PE or ACS. Pt is not tachycardic, not tachypneic, and has neg d-dimer. There is low concern for PE at this time and CTA chest deferred. Discussed with Dr. Vogel covering for Dr. Hutson (hematolgoy) and will discharge home with strict return precautions. TOM has resolved after toradol and IVF Initial ED EKG: NSR, no ST T wave changes (Vernell Montoya) Departure Departure Disposition: HOME OR SELF CARE Condition: Stable Clinical Impression Primary Impression: Chest pain Secondary Impressions: Headache Referrals: Austin MOE,Austin (PCP/Family) Chris Baumann MD Additional Instructions: Use tylenol as needed for pain. Follow up with Dr. Baumann (cardiology) and Dr. Hutson (hematology) for re-evaluation. Return to the emergency department for any new or worsening symptoms. Departure Forms: Customer Survey General Discharge Information (Vernell Montoya) PA/RECEIVER/LABORER Co-Sign Statement Statement: ED Attending supervision documentation- [] I saw and evaluated the patient. I have also reviewed all the pertinent lab results and diagnostic results. I agree with the findings and the plan of care as documented in the PA's/RECEIVER/LABORER's documentation. [X] I have reviewed the ED Record and agree with the PA's/RECEIVER/LABORER's documentation. [] Additions or exceptions (if any) to the PAs/RECEIVER/LABORER's note and plan are summarized below: [] (Reema MOE,Taj Doran) Critical Care Note Critical Care Note Critical Care Time: non-applicable (Vernell Montoya)
--- NOTE | 2018-02-01 14:06 | RADIOLOGY REPORT ---
EXAMINATION: XR CHEST CLINICAL INFORMATION: Chest pain COMPARISON: 09/21/2016 TECHNIQUE: 2 views of the chest were obtained. FINDINGS: The lungs are well-inflated and clear. Trachea is midline in position. No evidence of interstitial disease, focal consolidation, mass, pneumothorax or pleural effusion. The cardiomediastinal silhouette and pulmonary redd have normal size and contour. The visualized bones are normal. The examined upper abdomen is notable for cholecystectomy clips in the right upper quadrant. IMPRESSION: No acute cardiopulmonary disease.
--- NOTE | 2018-02-01 15:05 | ULTRASOUND REPORT ---
EXAMINATION: DOPPLER VENOUS ULTRASOUND UPPER EXTREMITY, LEFT CLINICAL INFORMATION: Pain. COMPARISON: November 2017. TECHNIQUE: Grayscale, Doppler and spectral analysis of the upper extremity and neck was performed. FINDINGS: There is no evidence for a deep venous thrombosis within the visualized upper extremity and neck veins. There is normal flow, compression and augmentation. IMPRESSION: Unremarkable examination. Specifically, no evidence for DVT.
[2018-02-01 15:09] LABS: ABSOLUTE BASOPHIL COUNT 0 /CUMM (0.0-0.2); ABSOLUTE EOSINOPHIL COUNT 0.2 /CUMM (0.0-0.7); ABSOLUTE GRANULOCYTE CT 4.1 /CUMM (1.4-6.5); ABSOLUTE MONOCYTE COUNT 0.4 /CUMM (0.10-0.60); BASOPHIL % 0.7 % (0.0-2.0); EOSINOPHIL % 3.6 % (0-5); GRANULOCYTE % 60.9 % (42.2-75.2); HEMATOCRIT 35.4 % (37-47); MEAN CORPUSCULAR HGB 30.1 PG (27.0-31.0); MEAN CORPUSCULAR VOLUME 88.7 FL (81.0-99.0); MEAN PLATELET VOLUME 7.6 FL (7.4-10.4); PLATELET COUNT 340 /CUMM (130-400); RBC DISTRIBUTION WIDTH 13.3 % (11.5-14.5); RED BLOOD CELL CT 3.99 /CUMM (4.20-5.40); WHITE BLOOD CELL COUNT 6.7 /CUMM (4.8-10.8)
[2018-02-01 16:24] VITALS: BP 96/62
== END 2018-02-01 16:44 ==
LOC: ERH 09:44
PROVIDERS: Physician Assistant
DX: R07.2 Precordial pain (principal); R51 Headache
CPT/HCPCS: 71046; 93005; 93010; 96361; 96374; 96375; J1200; J1885; J2765